=== PATIENT | female | born 1935 | race African-American/Black ===

== ENCOUNTER 2017-12-06 13:15 | Outpatient (CLI) | payer MEDICAID, MEDICARE ==
--- NOTE | 2017-12-06 17:32 | GI Initial Consult Note ---
Ortiz,Afshan Chase N.P. 12/06/17 1732: History of Present Illness General Date patient seen: Dec 06, 2017 Time patient seen: 17:17 Referring physician: RENETTA BARAHONA Reason for Consultation: GT CHANGE Present Illness HPI Pleasant 82 year old female patient referred by Dr. Barahona for GT evaluation and replacement. Patient is wheelchair bound, BIB by caregiver. Patient was roomed and awaited daughter for arrive. She presents today s/p PEG, still dependant on usage of the PEG after discussion with RN back at her home facility. Denies any unintentional weight loss or changes in dietary habits. NAD. Patient is a fall risk. Home Meds Reported Medications Ondansetron* (ZOFRAN*) 4 Mg Tablet, 4 MG GT Q6H PRN for Nausea & Vomiting, TAB 12/11/17 Acetaminophen* (TYLENOL EXTRA STRENGTH*) 500 Mg Tablet, 500 MG GT Q6H PRN for Mild Pain/Temp > 100.5, TAB 0 Refills 12/11/17 Mv-Mn/Fa/Coq10/Lycopene/Lutein (THERAGRAN-M PREMIER 50+ CAPLET) 1 Each Tablet, 1 EACH GT DAILY, TAB 12/11/17 Pravastatin Sod* (PRAVASTATIN SOD*) 20 Mg Tablet, 40 MG GT BEDTIME, TAB 12/11/17 Omeprazole (OMEPRAZOLE) 20 Mg Capsule.dr, 20 MG GT DAILY, CAP 12/11/17 Magnesium Hydroxide* (MILK OF MAGNESIA*) 400 Mg/5 Ml Oral.susp, 30 ML GT PRN, ML 12/11/17 Metoprolol Tartrate* (METOPROLOL TARTRATE*) 25 Mg Tablet, 25 MG GT EVERY 12 HOURS, TAB 12/11/17 Hypromellose (ISOPTO TEARS) 15 Ml Drops, 15 ML OP Q8HR, ML 12/11/17 Hydrochlorothiazide* (HYDROCHLOROTHIAZIDE*) 12.5 Mg Capsule, 12.5 MG GT DAILY, CAP 12/11/17 Aspirin Ec* (ASPIRIN EC*) 81 Mg Tablet.dr, 81 MG GT DAILY, TAB 12/11/17 Ascorbic Acid* (ASCORBIC ACID*) 500 Mg Tablet, 500 MG GT DAILY, TAB 12/11/17 Donepezil Hcl* (ARICEPT*) 5 Mg Tablet, 5 MG GT DAILY, TAB 12/11/17 Med list reviewed/reconciled: Yes Allergies: Coded Allergies: No Known Allergies (Unverified , 03/16/16) Patient History Limited by: medical condition History Provided By: Family Member, Medical Record PMH Narrative PMHx 1. Hypertension. 2. Gastroesophageal reflux disease. 3. Proteus urinary tract infection. 4. Dysphagia status post percutaneous endoscopic gastrostomy placement. 5. Acute renal failure secondary to dehydration, resolving. 6. Dehydration. 7. Anemia. 8. Hyponatremia. 9. Hematuria secondary to hemorrhagic cystitis status post cystoscopy. 10. Deep venous thrombosis of both femoral veins status post IVC filter. Social History: Denies: smoking, alcohol use, drug use, other Review of Systems All Other Systems: limited Physical Exam T 99.3 BP 130/88 P 79 95 RA Sp02 EP Interpretation: reviewed, normal General Appearance: well appearing, no apparent distress, alert Head: normocephalic EENT: PERRL/EOMI, normal ENT inspection Neck: supple Respiratory: normal breath sounds, no respiratory distress Cardiovascular: normal rate Gastrointestinal: normal inspection, non tender, soft, normal bowel sounds, non -distended Rectal: deferred Genitourinary: no CVA tenderness Neurologic: alert, responsive Skin: normal inspection, normal color, no rash, warm/dry, palpation normal, well hydrated Lymphatic: normal inspection, no adenopathy GI: Plan Problems: (1) PEG (percutaneous endoscopic gastrostomy) adjustment/replacement/removal Plan GT changed by . RTC prn no shower for 24 hours GT site care daily/prn okay to use Seen with Dr. Prieto. Thank you for this patient referral. KATHIE PRIETO 12/14/17 0830: History of Present Illness Present Illness Home Meds Reported Medications Ondansetron* (ZOFRAN*) 4 Mg Tablet, 4 MG GT Q6H PRN for Nausea & Vomiting, TAB 12/11/17 Acetaminophen* (TYLENOL EXTRA STRENGTH*) 500 Mg Tablet, 500 MG GT Q6H PRN for Mild Pain/Temp > 100.5, TAB 0 Refills 12/11/17 Mv-Mn/Fa/Coq10/Lycopene/Lutein (THERAGRAN-M PREMIER 50+ CAPLET) 1 Each Tablet, 1 EACH GT DAILY, TAB 12/11/17 Pravastatin Sod* (PRAVASTATIN SOD*) 20 Mg Tablet, 40 MG GT BEDTIME, TAB 12/11/17 Omeprazole (OMEPRAZOLE) 20 Mg Capsule.dr, 20 MG GT DAILY, CAP 12/11/17 Magnesium Hydroxide* (MILK OF MAGNESIA*) 400 Mg/5 Ml Oral.susp, 30 ML GT PRN, ML 12/11/17 Metoprolol Tartrate* (METOPROLOL TARTRATE*) 25 Mg Tablet, 25 MG GT EVERY 12 HOURS, TAB 12/11/17 Hypromellose (ISOPTO TEARS) 15 Ml Drops, 15 ML OP Q8HR, ML 12/11/17 Hydrochlorothiazide* (HYDROCHLOROTHIAZIDE*) 12.5 Mg Capsule, 12.5 MG GT DAILY, CAP 12/11/17 Aspirin Ec* (ASPIRIN EC*) 81 Mg Tablet.dr, 81 MG GT DAILY, TAB 12/11/17 Ascorbic Acid* (ASCORBIC ACID*) 500 Mg Tablet, 500 MG GT DAILY, TAB 12/11/17 Donepezil Hcl* (ARICEPT*) 5 Mg Tablet, 5 MG GT DAILY, TAB 12/11/17 Allergies: Coded Allergies: No Known Allergies (Unverified , 03/16/16) GI: Plan Plan The patient was seen and examined at bedside and all new and available data was reviewed in the patients chart. I agree with the above findings, impression and plan. (Patient seen earlier today. Signature stamp does not reflect patient encounter time.). - MD Diana Garber Anh Chase N.Mitch Dec 06, 2017 17:32 KATHIE PRIETO Dec 14, 2017 08:30
[2017-12-06] MEDS ORDERED: UNOBMED (17:33)
[2017-12-11] MEDS ORDERED: TYLENOL EXTRA500 MG GT (12:26)
[2017-12-11] MEDS ORDERED: ZOFRAN4 M3 GT (12:26)
[2017-12-11] MEDS ORDERED: ASCORBIC ACID500 MG GT (12:26)
[2017-12-11] MEDS ORDERED: PRAVASTATIN SOD20 M1 GT (12:26)
[2017-12-11] MEDS ORDERED: METOPROLOL TART25 MG GT (12:26)
[2017-12-11] MEDS ORDERED: ISOPTO TEARS15 ML OP (12:26)
[2017-12-11] MEDS ORDERED: ASPIRIN EC81 MG GT (12:26)
[2017-12-11] MEDS ORDERED: THERAGRAN-M PR1 EAC1 GT (12:26)
[2017-12-11] MEDS ORDERED: HYDROCHLOROTH12.5 M2 GT (12:26)
[2017-12-11] MEDS ORDERED: ARICEPT5 MG GT (12:26)
[2017-12-11] MEDS ORDERED: MILK OF MA400 MG/51 GT (12:26)
[2017-12-11] MEDS ORDERED: OMEPRAZOLE20 M2 GT (12:26)
== END 2017-12-06 13:48 | disposition home or self-care (01) ==
LOC: PAN 13:15
DX: Z43.1 Encounter for attention to gastrostomy (principal); I10 Essential (primary) hypertension; K21.9 Gastro-esophageal reflux disease without esophagitis; Z86.718 Personal history of other venous thrombosis and embolism
CPT/HCPCS: 99202

== ENCOUNTER 2018-08-09 08:34 | Inpatient (IN) | payer MEDICARE, MEDICAID ==
[~2018-08-09] VITALS: Ht 167.6 cm; Wt 68.2 kg
[~2018-08-09 08:34] MED LIST: ARICEPT5 MG GT; ASCORBIC ACID500 MG GT; ASPIRIN EC81 MG GT; HYDROCHLOROTH12.5 M2 GT; ISOPTO TEARS15 ML OP; METOPROLOL TART25 MG GT; MILK OF MA400 MG/51 GT; OMEPRAZOLE20 M2 GT; PRAVASTATIN SOD20 M1 GT; THERAGRAN-M PR1 EAC1 GT; TYLENOL EXTRA500 MG GT; UNOBMED; ZOFRAN4 M3 GT
--- NOTE | 2018-08-09 10:10 | Diagnostic Imaging Report ---
Indication: Status post gastrostomy replacement Technique: Supine view of the abdomen after injection of water-soluble contrast into gastrostomy Comparison: none Findings: Contrast opacifies the stomach. No contrast extravasation is demonstrated. The bowel gas pattern is unremarkable. Incidentally noted is an inferior vena cava filter. There is mild distention of the rectum with feces Impression: Satisfactory position of gastrostomy tube Possible mild rectal fecal impaction
[2018-08-09 10:26] LABS: BASOPHILS % (AUTO) 1.6 % (0.0-2.0); EOSINOPHILS % (AUTO) 1.2 % (0.0-3.0); HEMATOCRIT 40.9 % (37.0-47.0); HEMOGLOBIN 13.6 G/DL (12.0-16.0); LYMPHOCYTES % (AUTO) 19.9 % (20.0-45.0); MEAN CORPUSCULAR VOLUME 82 FL (80-99); MONOCYTES % (AUTO) 13.9 % (1.0-10.0); NEUTROPHILS % (AUTO) 63.4 % (45.0-75.0); PLATELET COUNT 344 K/UL (150-450); RED BLOOD COUNT 5.02 M/UL (4.20-5.40); WHITE BLOOD COUNT 10.1 K/UL (4.8-10.8)
[2018-08-09 10:34] LABS: ANION GAP 7 mmol/L (5-15); BLOOD UREA NITROGEN 30 mg/dL (7-18); CALCIUM 9.9 MG/DL (8.5-10.1); CARBON DIOXIDE 28 MMOL/L (21-32); CHLORIDE 107 MMOL/L (98-107); CREATININE 1.1 MG/DL (0.55-1.30); POTASSIUM 4.2 MMOL/L (3.5-5.1); SODIUM 142 MMOL/L (136-145)
[2018-08-09 10:36] LABS: INR 1.1 (0.9-1.1)
[2018-08-09 10:47] VITALS: BP 126/80
--- NOTE | 2018-08-09 11:59 | Emergency Room Report ---
History of Present Illness General Chief Complaint: Malfunctioning Gastric Tube Source: Patient Present Illness HPI This patient presents from a senior living facility because the G-tube is leaking. Apparently it was replaced yesterday and continues to leak. There are no other complaints. Allergies: Coded Allergies: No Known Allergies (Unverified , 03/16/16) Patient History Past Medical History: see triage record, HTN, CVA/TIA, dementia Social History: Denies: smoking, alcohol use, drug use Now: No Reviewed Nursing Documentation: PMH: Agreed; PSxH: Agreed Nursing Documentation-PMH Past Medical History: No History, Except For Hx Hypertension: Yes Hx Cancer: No Hx Gastrointestinal Problems: Yes - GERD Hx Neurological Problems: Yes - dementia Hx Cerebrovascular Accident: Yes Review of Systems All Other Systems: negative except mentioned in HPI Physical Exam Vital Signs Date Time Temp Pulse Resp B/P (MAP) Pulse Ox O2 Delivery O2 Flow Rate FiO2 08/09/18 08:35 99.9 110 20 126/80 94 Room Air Sp02 EP Interpretation: reviewed, normal General Appearance: no apparent distress, alert, GCS 15, non-toxic Head: normocephalic, atraumatic ENT: hearing grossly normal, normal pharynx, no angioedema Neck: full range of motion, supple/symm/no masses Respiratory: chest non-tender, lungs clear, normal breath sounds, no respiratory distress, no retraction, no accessory muscle use, speaking full sentences Cardiovascular #1: regular rate, rhythm, no edema Gastrointestinal: normal bowel sounds, non tender, soft, non-distended, no guarding, no rebound, other - G-tube leaking around insertion site when flushed Rectal: deferred Musculoskeletal: back normal, other - At baseline Neurologic: alert, responsive, other - hemiplegia, at baseline Psychiatric: mood/affect normal, no suicidal/homicidal ideation Skin: warm/dry, well hydrated, other - See RN skin exam Medical Decision Making Diagnostic Impression: Primary Impression: Malfunction of gastrostomy tube ER Course The patient presents with a leaking G-tube. I did replace the G-tube with a larger size. However, the G-tube continued to leak. This patient needs to be assessed by gastroenterology for further evaluation for G-tube site leaking. Laboratory Tests Test 08/09/18 10:14 White Blood Count 10.1 K/UL (4.8-10.8) Red Blood Count 5.02 M/UL (4.20-5.40) Hemoglobin 13.6 G/DL (12.0-16.0) Hematocrit 40.9 % (37.0-47.0) Mean Corpuscular Volume 82 FL (80-99) Mean Corpuscular Hemoglobin 27.0 PG (27.0-31.0) Mean Corpuscular Hemoglobin Concent 33.1 G/DL (32.0-36.0) Red Cell Distribution Width 13.0 % (11.6-14.8) Platelet Count 344 K/UL (150-450) Mean Platelet Volume 6.0 FL (6.5-10.1) L Neutrophils (%) (Auto) 63.4 % (45.0-75.0) Lymphocytes (%) (Auto) 19.9 % (20.0-45.0) L Monocytes (%) (Auto) 13.9 % (1.0-10.0) H Eosinophils (%) (Auto) 1.2 % (0.0-3.0) Basophils (%) (Auto) 1.6 % (0.0-2.0) Prothrombin Time 11.1 SEC (9.30-11.50) Prothrombin Time INR 1.1 (0.9-1.1) PTT 26 SEC (23-33) Sodium Level 142 MMOL/L (136-145) Potassium Level 4.2 MMOL/L (3.5-5.1) Chloride Level 107 MMOL/L (98-107) Carbon Dioxide Level 28 MMOL/L (21-32) Anion Gap 7 mmol/L (5-15) Blood Urea Nitrogen 30 mg/dL (7-18) H Creatinine 1.1 MG/DL (0.55-1.30) Estimate Glomerular Filtration Rate mL/min (>60) Glucose Level 130 MG/DL (74-106) H Calcium Level 9.9 MG/DL (8.5-10.1) Other X-Ray Diagnostic Results Other X-Ray Diagnostic Results : X-Ray ordered: KUB Impression: Other - Impression: Satisfactory position of gastrostomy tube Electronically Signed by: Rod Last Vital Signs Date Time Temp Pulse Resp B/P (MAP) Pulse Ox O2 Delivery O2 Flow Rate FiO2 08/09/18 10:47 98.6 110 20 126/80 96 Room Air Disposition: ADMITTED INPATIENT Condition: Stable Referrals: Jonatan Arteaga MD (PCP) Julita Sarmiento DO Aug 09, 2018 11:59
[2018-08-09 12:30] VITALS: BP 128/79
[2018-08-09 13:30] VITALS: BP 153/94
[2018-08-09] MEDS: D5NS 1,000 ML IV SCH (14:15)
[2018-08-09 16:00] VITALS: BP 149/92
--- NOTE | 2018-08-09 18:15 | History and Physical Report ---
DATE OF ADMISSION: 08/09/2018 REASON FOR ADMISSION: Malfunctioning gastrointestinal tube. HISTORY OF PRESENT ILLNESS: The patient is an 83-year-old female brought into the emergency room for further evaluation and care of a malfunctioning G-tube. Emergency room physician attempted to correct but was unable as such she is being admitted for further evaluation and correction. She is in no overt distress. PAST MEDICAL HISTORY: 1. DVT. 2. Pulmonary embolism. 3. Dementia. 4. Bed bound. 5. CVA. ALLERGIES: No known drug allergies. SOCIAL HISTORY: The patient is a assisted resident. No tobacco, alcohol, or illicit drug use. FAMILY HISTORY: Noncontributory. REVIEW OF SYSTEMS: Cannot obtain as patient is nonverbal. LABORATORY AND DIAGNOSTIC DATA: Labs dated August 09, 2018, white cell count 10.1, hemoglobin 10.3. Sodium 142, potassium 4.2, creatinine 1.1. PHYSICAL EXAMINATION: VITAL SIGNS: Blood pressure 126/80, respiratory 20, pulse 110, temperature 98.6, pulse oximetry 96% on room air. GENERAL: The patient awake, in no overt distress. HEENT: Extraocular muscles intact. No lymphadenopathy. Oropharyngeal mucosa clear and dry. CARDIOVASCULAR: S1 and S2. No rubs or gallops. PULMONARY: Clear to auscultation bilaterally. No rales, rhonchi or wheezes. ABDOMEN: Nondistended and nontender. G-tube noted and bandaged. EXTREMITIES: No edema noted. ASSESSMENT AND PLAN: 1. Nonfunctioning G-tube. At this time, gastroenterology has been consulted. Once Gastroenterology has corrected the malfunctioning G-tube, we will discharge the patient. 2. Hypertension, stable. Continue assisted medications and adjust as deemed appropriate. 3. DVT prophylaxis with Lovenox subcutaneous. 4. GERD. The patient on omeprazole. 5. Dementia. The patient on donepezil. Once gastrointestinal tube is corrected, the patient will be discharged back to her assisted. Cheng Crandall MD DR: Sylvia JOB#: [id number] CC:
--- NOTE | 2018-08-09 18:40 | Internal Med Progress Note ---
Subjective Date of Service: Aug 09, 2018 Physician Name Guanako Mensah Attending Physician Cheng Crandall MD Current Medications Medications (Trade) Dose Ordered Sig/Beatris Route PRN Reason Start Time Stop Time Status Last Admin Dose Admin Ascorbic Acid (Vitamin C) 500 mg DAILY GT 08/10/18 09:00 09/09/18 08:59 Aspirin (ASA) 81 mg DAILY GT 08/10/18 09:00 09/09/18 08:59 Dextrose (Dextrose 50%) 25 ml Q30M PRN IV Hypoglycemia 08/09/18 11:15 09/08/18 11:14 Dextrose (Dextrose 50%) 50 ml Q30M PRN IV Hypoglycemia 08/09/18 11:15 09/08/18 11:14 Dextrose/Sodium Chloride 1,000 ml @ 75 mls/hr [id number] IV 08/09/18 11:24 09/08/18 11:23 08/09/18 14:15 Donepezil HCl (Aricept) 5 mg QHS GT 08/09/18 21:00 09/08/18 20:59 Enoxaparin Sodium (Lovenox) 40 mg DAILY SUBQ 08/10/18 09:00 09/09/18 08:59 Hydrochlorothiazide (Hydrodiuril) 12.5 mg DAILY GT 08/10/18 09:00 09/09/18 08:59 Metoprolol Tartrate (Lopressor) 25 mg Q12HR GT 08/09/18 21:00 09/08/18 20:59 Ondansetron HCl (Zofran) 4 mg Q6H PRN IVP Nausea & Vomiting 08/09/18 11:15 09/08/18 11:14 Pravastatin Sodium (Pravachol) 40 mg DAILY GT 08/10/18 09:00 09/09/18 08:59 Allergies: Coded Allergies: No Known Allergies (Unverified , 03/16/16) ROS Limited/Unobtainable: Yes Subjective 83 YO F admitted with leaking G-tube. Cover for Int Med-Dr Arteaga. Objective Last Vital Signs Date Time Temp Pulse Resp B/P (MAP) Pulse Ox O2 Delivery O2 Flow Rate FiO2 08/09/18 16:00 98.1 98 20 149/92 (111) 08/09/18 13:49 Room Air 08/09/18 12:58 96 General Appearance: WD/WN, no apparent distress, lethargic EENT: PERRL/EOMI, normal ENT inspection Neck: non-tender, normal alignment, supple, normal inspection Cardiovascular: normal peripheral pulses, normal rate, regular rhythm, no gallop/murmur, no JVD Respiratory/Chest: chest wall non-tender, lungs clear, normal breath sounds, no respiratory distress, no accessory muscle use Abdomen: soft, no organomegaly, no mass, decreased bowel sounds Extremities: normal range of motion 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 Laboratory Tests Test 08/09/18 10:14 White Blood Count 10.1 K/UL (4.8-10.8) Red Blood Count 5.02 M/UL (4.20-5.40) Hemoglobin 13.6 G/DL (12.0-16.0) Hematocrit 40.9 % (37.0-47.0) Mean Corpuscular Volume 82 FL (80-99) Mean Corpuscular Hemoglobin 27.0 PG (27.0-31.0) Mean Corpuscular Hemoglobin Concent 33.1 G/DL (32.0-36.0) Red Cell Distribution Width 13.0 % (11.6-14.8) Platelet Count 344 K/UL (150-450) Mean Platelet Volume 6.0 FL (6.5-10.1) L Neutrophils (%) (Auto) 63.4 % (45.0-75.0) Lymphocytes (%) (Auto) 19.9 % (20.0-45.0) L Monocytes (%) (Auto) 13.9 % (1.0-10.0) H Eosinophils (%) (Auto) 1.2 % (0.0-3.0) Basophils (%) (Auto) 1.6 % (0.0-2.0) Prothrombin Time 11.1 SEC (9.30-11.50) Prothromb Time International Ratio 1.1 (0.9-1.1) Activated Partial Thromboplast Time 26 SEC (23-33) Sodium Level 142 MMOL/L (136-145) Potassium Level 4.2 MMOL/L (3.5-5.1) Chloride Level 107 MMOL/L (98-107) Carbon Dioxide Level 28 MMOL/L (21-32) Anion Gap 7 mmol/L (5-15) Blood Urea Nitrogen 30 mg/dL (7-18) H Creatinine 1.1 MG/DL (0.55-1.30) Estimat Glomerular Filtration Rate mL/min (>60) Glucose Level 130 MG/DL (74-106) H Calcium Level 9.9 MG/DL (8.5-10.1) Assessment/Plan Problem List: (1) Alzheimer's dementia (2) Cerebral vascular disease (3) 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 Assessment & Plan: Continue lovenox (4) Malfunction of gastrostomy tube Assessment & Plan: Await GI consult. (5) HTN (hypertension) Assessment & Plan: Continue HCTZ and lopressor (6) GERD (gastroesophageal reflux disease) (7) Dysphagia Status: not improved Guanako Mensah MD Aug 09, 2018 18:40
[2018-08-09 20:00] VITALS: BP 138/88
[2018-08-09] MEDS: Donepezil 5mg Tab GT SCH (21:01)
[2018-08-09] MEDS: Metoprolol 25mg tab GT SCH (21:01)
--- NOTE | 2018-08-09 21:39 | Consultation ---
History of Present Illness General Date patient seen: Aug 09, 2018 Chief Complaint: Malfunctioning Gastric Tube Present Illness HPI 3-year-old female was [facility] emergency room for further evaluation and care of a malfunctioning G-tube. the pt resides at [facility] and i treat her there. the pt has been more confused and agitated. the pt is currently on donazapil. The pt is a poor historian and has memory impairment. Allergies: Coded Allergies: No Known Allergies (Unverified , 03/16/16) Medication History Scheduled Ascorbic Acid* (Ascorbic Acid*), 500 MG GT DAILY, (Reported) Aspirin Ec* (Aspirin Ec*), 81 MG GT DAILY, (Reported) Donepezil Hcl* (Aricept*), 5 MG GT DAILY, (Reported) Hydrochlorothiazide* (Hydrochlorothiazide*), 12.5 MG GT DAILY, (Reported) Hypromellose (Isopto Tears), 15 ML OP Q8HR, (Reported) Magnesium Hydroxide* (Milk Of Magnesia*), 30 ML GT PRN, (Reported) Metoprolol Tartrate* (Metoprolol Tartrate*), 25 MG GT EVERY 12 HOURS, (Reported) Mv-Mn/Fa/Coq10/Lycopene/Lutein (Theragran-M Premier 50+ Caplet), 1 EACH GT DAILY , (Reported) Omeprazole (Omeprazole), 20 MG GT DAILY, (Reported) Pravastatin Sod* (Pravastatin Sod*), 40 MG GT BEDTIME, (Reported) Scheduled PRN Acetaminophen* (Tylenol Extra Strength*), 500 MG GT Q6H PRN for Mild Pain/Temp > 100.5, (Reported) Ondansetron* (Zofran*), 4 MG GT Q6H PRN for Nausea & Vomiting, (Reported) Patient History Limited by: medical condition History Provided By: Patient, Medical Record Healthcare decision maker unable to get the info Resuscitation status Do Not Intubate Advanced Directive on File Past Medical/Surgical History Past Medical/Surgical History: (1) Dehydration (2) UTI (urinary tract infection) (3) ARF (acute renal failure) (4) Failure to thrive (5) Anemia (6) Encounter for PEG (percutaneous endoscopic gastrostomy) (7) Hypoalbuminemia (8) Hypernatremia (9) Proteus mirabilis infection (10) Rectal bleeding (11) Hyponatremia (12) Tachycardia (13) Hematuria (14) Cystitis (15) Deep venous thrombosis of both femoral veins (16) PEG (percutaneous endoscopic gastrostomy) adjustment/replacement/removal (17) HTN (hypertension) (18) Cerebral vascular disease (19) Alzheimer's dementia (20) 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 (21) Dysphagia (22) GERD (gastroesophageal reflux disease) (23) Malfunction of gastrostomy tube Review of Systems Psychiatric: Reports: prior hx, anxiety Physical Exam General Appearance: no apparent distress, alert, confused - oriented to self and place Last 24 Hour Vital Signs Date Time Temp Pulse Resp B/P (MAP) Pulse Ox O2 Delivery O2 Flow Rate FiO2 08/09/18 21:01 97 138/88 08/09/18 21:00 Room Air 08/09/18 20:00 97.3 97 20 138/88 (105) 97 08/09/18 16:00 98.1 98 20 149/92 (111) 08/09/18 13:49 Room Air 08/09/18 13:30 97.8 101 20 153/94 (113) 08/09/18 12:58 98.6 103 18 128/79 96 Room Air 08/09/18 12:30 98.6 103 18 128/79 96 Room Air 08/09/18 10:47 98.6 110 20 126/80 96 Room Air 08/09/18 08:35 99.9 110 20 126/80 94 Room Air Laboratory Tests Test 08/09/18 10:14 White Blood Count 10.1 K/UL (4.8-10.8) Red Blood Count 5.02 M/UL (4.20-5.40) Hemoglobin 13.6 G/DL (12.0-16.0) Hematocrit 40.9 % (37.0-47.0) Mean Corpuscular Volume 82 FL (80-99) Mean Corpuscular Hemoglobin 27.0 PG (27.0-31.0) Mean Corpuscular Hemoglobin Concent 33.1 G/DL (32.0-36.0) Red Cell Distribution Width 13.0 % (11.6-14.8) Platelet Count 344 K/UL (150-450) Mean Platelet Volume 6.0 FL (6.5-10.1) L Neutrophils (%) (Auto) 63.4 % (45.0-75.0) Lymphocytes (%) (Auto) 19.9 % (20.0-45.0) L Monocytes (%) (Auto) 13.9 % (1.0-10.0) H Eosinophils (%) (Auto) 1.2 % (0.0-3.0) Basophils (%) (Auto) 1.6 % (0.0-2.0) Prothrombin Time 11.1 SEC (9.30-11.50) Prothromb Time International Ratio 1.1 (0.9-1.1) Activated Partial Thromboplast Time 26 SEC (23-33) Sodium Level 142 MMOL/L (136-145) Potassium Level 4.2 MMOL/L (3.5-5.1) Chloride Level 107 MMOL/L (98-107) Carbon Dioxide Level 28 MMOL/L (21-32) Anion Gap 7 mmol/L (5-15) Blood Urea Nitrogen 30 mg/dL (7-18) H Creatinine 1.1 MG/DL (0.55-1.30) Estimat Glomerular Filtration Rate mL/min (>60) Glucose Level 130 MG/DL (74-106) H Calcium Level 9.9 MG/DL (8.5-10.1) Height (Feet): 5 Height (Inches): 6.00 Weight (Pounds): 150 Medications Current Medications Medications (Trade) Dose Ordered Sig/Beatris Route PRN Reason Start Time Stop Time Status Last Admin Dose Admin Ascorbic Acid (Vitamin C) 500 mg DAILY GT 08/10/18 09:00 09/09/18 08:59 Aspirin (ASA) 81 mg DAILY GT 08/10/18 09:00 09/09/18 08:59 Dextrose (Dextrose 50%) 25 ml Q30M PRN IV Hypoglycemia 08/09/18 11:15 09/08/18 11:14 Dextrose (Dextrose 50%) 50 ml Q30M PRN IV Hypoglycemia 08/09/18 11:15 09/08/18 11:14 Dextrose/Sodium Chloride 1,000 ml @ 75 mls/hr [id number] IV 08/09/18 11:24 09/08/18 11:23 08/09/18 14:15 Donepezil HCl (Aricept) 5 mg QHS GT 08/09/18 21:00 09/08/18 20:59 08/09/18 21:01 Enoxaparin Sodium (Lovenox) 40 mg DAILY SUBQ 08/10/18 09:00 09/09/18 08:59 Hydrochlorothiazide (Hydrodiuril) 12.5 mg DAILY GT 08/10/18 09:00 09/09/18 08:59 Metoprolol Tartrate (Lopressor) 25 mg Q12HR GT 08/09/18 21:00 09/08/18 20:59 08/09/18 21:01 Ondansetron HCl (Zofran) 4 mg Q6H PRN IVP Nausea & Vomiting 08/09/18 11:15 09/08/18 11:14 Pravastatin Sodium (Pravachol) 40 mg DAILY GT 08/10/18 09:00 09/09/18 08:59 Assessment/Plan Problem List: (1) Alzheimer's dementia ICD Codes: G30.9 - Alzheimer's disease, unspecified; F02.80 - Dementia in other diseases classified elsewhere without behavioral disturbance SNOMED: 12438545 (2) Cerebral vascular disease ICD Codes: I67.9 - Cerebrovascular disease, unspecified SNOMED: 59620276 Status: unchanged Assessment/Plan anxiety d/o Ativan prn Aruna Cornejo MD Aug 09, 2018 21:39
[2018-08-09] MEDS ORDERED: LORazepam 1mg tab ORAL PRN (21:45)
[2018-08-10 00:31] VITALS: BP 159/95
[2018-08-10] MEDS: D5NS 1,000 ML IV SCH ×2 (00:32→05:58)
[2018-08-10 04:40] VITALS: BP 145/78
[2018-08-10 06:22] LABS: BASOPHILS % (AUTO) 1.3 % (0.0-2.0); EOSINOPHILS % (AUTO) 2.1 % (0.0-3.0); HEMATOCRIT 35.3 % (37.0-47.0); HEMOGLOBIN 11.6 G/DL (12.0-16.0); LYMPHOCYTES % (AUTO) 20.8 % (20.0-45.0); MEAN CORPUSCULAR VOLUME 82 FL (80-99); MONOCYTES % (AUTO) 13.7 % (1.0-10.0); NEUTROPHILS % (AUTO) 62.1 % (45.0-75.0); PLATELET COUNT 301 K/UL (150-450); WHITE BLOOD COUNT 7.8 K/UL (4.8-10.8)
[2018-08-10 06:33] LABS: ANION GAP 10 mmol/L (5-15); BLOOD UREA NITROGEN 26 mg/dL (7-18); CALCIUM 9.1 MG/DL (8.5-10.1); CARBON DIOXIDE 24 MMOL/L (21-32); CHLORIDE 111 MMOL/L (98-107); CREATININE 1.1 MG/DL (0.55-1.30); SODIUM 145 MMOL/L (136-145)
[2018-08-10 08:00] VITALS: BP 127/73
[2018-08-10] MEDS: Aspirin Baby 81mg GT SCH (09:00)
[2018-08-10] MEDS: Ascorbic Acid 500mg tab GT SCH (09:00)
[2018-08-10] MEDS: Metoprolol 25mg tab GT SCH ×2 (09:00→20:35)
[2018-08-10] MEDS: Enoxaparin 40mg Inj SUBQ SCH (09:23)
[2018-08-10 12:00] VITALS: BP 136/86
--- NOTE | 2018-08-10 13:48 | General Progress Note ---
Assessment/Plan Assessment/Plan GI CONSULT GT removed and then replaced. Will feed today. If fails, then may need G to J conversion Sunday Thank you Humble Middleton MD Subjective Allergies: Coded Allergies: No Known Allergies (Unverified , 03/16/16) Objective Last 24 Hour Vital Signs Date Time Temp Pulse Resp B/P (MAP) Pulse Ox O2 Delivery O2 Flow Rate FiO2 08/10/18 12:00 98.4 87 16 136/86 (103) 97 08/10/18 09:00 Room Air 08/10/18 09:00 79 127/73 08/10/18 08:00 98.1 79 16 127/73 (91) 98 08/10/18 04:40 98.2 87 20 145/78 (100) 95 08/10/18 00:31 98.2 89 20 159/95 (116) 98 08/09/18 21:01 97 138/88 08/09/18 21:00 Room Air 08/09/18 20:00 97.3 97 20 138/88 (105) 97 08/09/18 16:00 98.1 98 20 149/92 (111) 08/09/18 13:49 Room Air Intake and Output 08/09/18 08/10/18 18:59 06:59 Intake Total 825 ml Balance 825 ml Intake IV Total 825 ml # Voids 3 2 Laboratory Tests 08/10/18 05:50: White Blood Count 7.8, Red Blood Count 4.30, Hemoglobin 11.6L, Hematocrit 35.3L , Mean Corpuscular Volume 82, Mean Corpuscular Hemoglobin 27.0, Mean Corpuscular Hemoglobin Concent 32.8, Red Cell Distribution Width 13.0, Platelet Count 301, Mean Platelet Volume 5.8L, Neutrophils (%) (Auto) 62.1, Lymphocytes ( %) (Auto) 20.8, Monocytes (%) (Auto) 13.7H, Eosinophils (%) (Auto) 2.1, Basophils (%) (Auto) 1.3, Sodium Level 145, Potassium Level 4.0, Chloride Level 111H, Carbon Dioxide Level 24, Anion Gap 10, Blood Urea Nitrogen 26H, Creatinine 1.1, Estimat Glomerular Filtration Rate , Glucose Level 122H, Calcium Level 9.1 Height (Feet): 5 Height (Inches): 6.00 Weight (Pounds): 150 Radah Middleton MD Aug 10, 2018 13:48
[2018-08-10] MEDS ORDERED: Metoclopramide 10mg/2ml Inj IVP PRN (14:00)
[2018-08-10 16:00] VITALS: BP 157/83
--- NOTE | 2018-08-10 16:52 | Internal Med Progress Note ---
Subjective Date of Service: Aug 10, 2018 Physician Name Mensah,Guanako Attending Physician Jonatan Arteaga MD Current Medications Medications (Trade) Dose Ordered Sig/Beatris Route PRN Reason Start Time Stop Time Status Last Admin Dose Admin Ascorbic Acid (Vitamin C) 500 mg DAILY GT 08/10/18 09:00 09/09/18 08:59 Aspirin (ASA) 81 mg DAILY GT 08/10/18 09:00 09/09/18 08:59 Dextrose (Dextrose 50%) 25 ml Q30M PRN IV Hypoglycemia 08/09/18 11:15 09/08/18 11:14 Dextrose (Dextrose 50%) 50 ml Q30M PRN IV Hypoglycemia 08/09/18 11:15 09/08/18 11:14 Dextrose/Sodium Chloride 1,000 ml @ 75 mls/hr [id number] IV 08/09/18 11:24 09/08/18 11:23 08/10/18 05:58 Donepezil HCl (Aricept) 5 mg QHS GT 08/09/18 21:00 09/08/18 20:59 08/09/18 21:01 Enoxaparin Sodium (Lovenox) 40 mg DAILY SUBQ 08/10/18 09:00 09/09/18 08:59 08/10/18 09:23 Hydrochlorothiazide (Hydrodiuril) 12.5 mg DAILY GT 08/10/18 09:00 09/09/18 08:59 Lorazepam (Ativan) 1 mg Q6H PRN ORAL For Anxiety 08/09/18 21:45 08/16/18 21:44 Metoclopramide HCl (Reglan) 10 mg Q6H PRN IVP Nausea & Vomiting 08/10/18 14:00 09/09/18 13:59 Metoprolol Tartrate (Lopressor) 25 mg Q12HR GT 08/09/18 21:00 09/08/18 20:59 08/09/18 21:01 Ondansetron HCl (Zofran) 4 mg Q6H PRN IVP Nausea & Vomiting 08/09/18 11:15 09/08/18 11:14 Pravastatin Sodium (Pravachol) 40 mg DAILY GT 08/10/18 09:00 09/09/18 08:59 Allergies: Coded Allergies: No Known Allergies (Unverified , 03/16/16) ROS Limited/Unobtainable: Yes Subjective 83 YO F admitted with leaking G-tube. Cover for Int Sriram-Dr Arteaga. Objective Last Vital Signs Date Time Temp Pulse Resp B/P (MAP) Pulse Ox O2 Delivery O2 Flow Rate FiO2 08/10/18 16:00 98.5 97 17 157/83 (107) 99 08/10/18 09:00 Room Air General Appearance: WD/WN, no apparent distress EENT: PERRL/EOMI, normal ENT inspection Neck: non-tender, normal alignment, supple, normal inspection Cardiovascular: normal peripheral pulses, normal rate, regular rhythm, no gallop/murmur, no JVD Respiratory/Chest: chest wall non-tender, lungs clear, normal breath sounds, no respiratory distress, no accessory muscle use Abdomen: normal bowel sounds, non tender, soft, no organomegaly, no mass Extremities: normal range of motion Neurologic: claim representative II-XII grossly normal, no motor/sensory deficits Skin: normal pigmentation, warm/dry Laboratory Tests Test 08/10/18 05:50 White Blood Count 7.8 K/UL (4.8-10.8) Red Blood Count 4.30 M/UL (4.20-5.40) Hemoglobin 11.6 G/DL (12.0-16.0) L Hematocrit 35.3 % (37.0-47.0) L Mean Corpuscular Volume 82 FL (80-99) Mean Corpuscular Hemoglobin 27.0 PG (27.0-31.0) Mean Corpuscular Hemoglobin Concent 32.8 G/DL (32.0-36.0) Red Cell Distribution Width 13.0 % (11.6-14.8) Platelet Count 301 K/UL (150-450) Mean Platelet Volume 5.8 FL (6.5-10.1) L Neutrophils (%) (Auto) 62.1 % (45.0-75.0) Lymphocytes (%) (Auto) 20.8 % (20.0-45.0) Monocytes (%) (Auto) 13.7 % (1.0-10.0) H Eosinophils (%) (Auto) 2.1 % (0.0-3.0) Basophils (%) (Auto) 1.3 % (0.0-2.0) Sodium Level 145 MMOL/L (136-145) Potassium Level 4.0 MMOL/L (3.5-5.1) Chloride Level 111 MMOL/L (98-107) H Carbon Dioxide Level 24 MMOL/L (21-32) Anion Gap 10 mmol/L (5-15) Blood Urea Nitrogen 26 mg/dL (7-18) H Creatinine 1.1 MG/DL (0.55-1.30) Estimat Glomerular Filtration Rate mL/min (>60) Glucose Level 122 MG/DL (74-106) H Calcium Level 9.1 MG/DL (8.5-10.1) Intake and Output 08/09/18 08/10/18 19:00 07:00 Intake Total 75 ml 750 ml Balance 75 ml 750 ml Intake IV Total 75 ml 750 ml # Voids 3 2 Assessment/Plan Problem List: (1) Alzheimer's dementia (2) Cerebral vascular disease (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 (5) HTN (hypertension) Assessment & Plan: Continue HCTZ and lopressor (6) GERD (gastroesophageal reflux disease) (7) Dysphagia Status: not improved Guanako Mensah MD Aug 10, 2018 16:52
--- NOTE | 2018-08-10 18:15 | Consultation ---
DATE OF CONSULTATION: 08/10/2018 GASTROENTEROLOGY CONSULTATION CONSULTING PHYSICIAN: Radha Middleton M.D. CHIEF COMPLAINT: I was asked to see this patient by Dr. Cheng Crandall for evaluation of gastrostomy tube leakage. HISTORY OF PRESENT ILLNESS: The patient is an 83-year-old -Lao woman with advanced dementia and history of stroke, who has undergone a gastrostomy tube placement, was brought in from a [place] [facility] care facility due to gastrostomy tube leakage. The patient herself has advanced dementia and is unable to provide much history. Most of the information is only available from the chart. I discussed with the patient's nurses. Her feeding and medications have been held for now. The patient has had no vomiting. PAST MEDICAL HISTORY: History of deep vein thrombosis, pulmonary embolism, dementia, bedbound state, and dysphagia. There is gastrostomy tube placement. ALLERGIES: None. FAMILY HISTORY: Unavailable and noncontributory. SOCIAL HISTORY: The patient is from a [place] health care facility. The patient has had no history of smoking or drinking. REVIEW OF SYSTEMS: Unobtainable. PHYSICAL EXAMINATION: GENERAL: An elderly -Lao woman, seen in her room. HEENT: Normocephalic and atraumatic. Sclerae anicteric. Oropharynx clear. NECK: Supple. CHEST: Clear to auscultation. CARDIOVASCULAR: Revealed regular rate. ABDOMEN: Soft with 22-Persian gastrostomy catheter in apparent good position, but leaking thin gastric juices. The gastrostomy tube was deflated, completely removed, cleaned and the gastrostomy site also cleaned and the gastrostomy catheter was then placed back into gastric lumen and the catheter inflated and position secured. EXTREMITIES: Revealed no edema. LABORATORY AND DIAGNOSTIC DATA: Laboratory data was noted. ASSESSMENT: This patient presents with gastrostomy site leakage of unclear etiology. The gastrostomy catheter itself appears to be in relatively new shape and also in good position. The issue may be gastroparesis or other pathology, which impair clearance of gastric contents. I will retry feeding overnight and if the patient fails this feeding trial, then a gastrostomy to jejunostomy conversion may be indicated. RECOMMENDATIONS: Per above discussion and per orders written in the chart. Thank you for asking me to participate in care of this patient. Radha Middleton M.D. DR: SANDRO JOB#: [id number] CC:
[2018-08-10 20:00] VITALS: BP 176/99
[2018-08-10] MEDS: Donepezil 5mg Tab GT SCH (20:35)
--- NOTE | 2018-08-10 22:39 | General Progress Note ---
Assessment/Plan Problem List: (1) Alzheimer's dementia ICD Codes: G30.9 - Alzheimer's disease, unspecified; F02.80 - Dementia in other diseases classified elsewhere without behavioral disturbance SNOMED: 52948857 (2) Cerebral vascular disease ICD Codes: I67.9 - Cerebrovascular disease, unspecified SNOMED: 23485261 Status: not improved, unchanged Assessment/Plan anxiety d/o Ativan prn donazapi; Subjective Date patient seen: Aug 10, 2018 Neurologic/Psychiatric: Reports: anxiety, depressed Allergies: Coded Allergies: No Known Allergies (Unverified , 03/16/16) Objective Last 24 Hour Vital Signs Date Time Temp Pulse Resp B/P (MAP) Pulse Ox O2 Delivery O2 Flow Rate FiO2 08/10/18 20:35 104 176/99 08/10/18 20:00 98.0 104 18 176/99 (124) 100 08/10/18 16:00 98.5 97 17 157/83 (107) 99 08/10/18 12:00 98.4 87 16 136/86 (103) 97 08/10/18 09:00 Room Air 08/10/18 09:00 79 127/73 08/10/18 08:00 98.1 79 16 127/73 (91) 98 08/10/18 04:40 98.2 87 20 145/78 (100) 95 08/10/18 00:31 98.2 89 20 159/95 (116) 98 Intake and Output 08/09/18 08/10/18 19:00 07:00 Intake Total 75 ml 750 ml Balance 75 ml 750 ml Intake IV Total 75 ml 750 ml # Voids 3 2 Laboratory Tests 08/10/18 05:50: White Blood Count 7.8, Red Blood Count 4.30, Hemoglobin 11.6L, Hematocrit 35.3L , Mean Corpuscular Volume 82, Mean Corpuscular Hemoglobin 27.0, Mean Corpuscular Hemoglobin Concent 32.8, Red Cell Distribution Width 13.0, Platelet Count 301, Mean Platelet Volume 5.8L, Neutrophils (%) (Auto) 62.1, Lymphocytes ( %) (Auto) 20.8, Monocytes (%) (Auto) 13.7H, Eosinophils (%) (Auto) 2.1, Basophils (%) (Auto) 1.3, Sodium Level 145, Potassium Level 4.0, Chloride Level 111H, Carbon Dioxide Level 24, Anion Gap 10, Blood Urea Nitrogen 26H, Creatinine 1.1, Estimat Glomerular Filtration Rate , Glucose Level 122H, Calcium Level 9.1 Height (Feet): 5 Height (Inches): 6.00 Weight (Pounds): 150 General Appearance: alert, confused, agitated Aruna Hussein MD Aug 10, 2018 22:39
[2018-08-11] VITALS: BP 165/85
[2018-08-11] MEDS: D5NS 1,000 ML IV SCH ×2 (00:07→12:06)
[2018-08-11] MEDS: Metoclopramide 10mg/10ml Liq GT SCH ×5 (00:07→23:35)
[2018-08-11 04:00] VITALS: BP 149/71
[2018-08-11 06:18] LABS: BASOPHILS % (AUTO) 1.2 % (0.0-2.0); HEMATOCRIT 37.2 % (37.0-47.0); MEAN CORPUSCULAR VOLUME 83 FL (80-99); MONOCYTES % (AUTO) 15.7 % (1.0-10.0); NEUTROPHILS % (AUTO) 63.1 % (45.0-75.0); PLATELET COUNT 291 K/UL (150-450); RED BLOOD COUNT 4.47 M/UL (4.20-5.40); RED CELL DISTRIBUTION WIDTH 12.7 % (11.6-14.8); WHITE BLOOD COUNT 7.4 K/UL (4.8-10.8)
[2018-08-11 07:02] LABS: ANION GAP 9 mmol/L (5-15); BLOOD UREA NITROGEN 22 mg/dL (7-18); CALCIUM 9.1 MG/DL (8.5-10.1); CARBON DIOXIDE 25 MMOL/L (21-32); CHLORIDE 111 MMOL/L (98-107); POTASSIUM 3.4 MMOL/L (3.5-5.1); SODIUM 145 MMOL/L (136-145)
[2018-08-11 08:00] VITALS: BP 134/78
[2018-08-11] MEDS: Aspirin Baby 81mg GT SCH (08:52)
[2018-08-11] MEDS: Ascorbic Acid 500mg tab GT SCH (08:53)
[2018-08-11] MEDS: Metoprolol 25mg tab GT SCH ×2 (08:53→20:12)
[2018-08-11] MEDS: Enoxaparin 40mg Inj SUBQ SCH (08:55)
[2018-08-11 11:59] VITALS: BP 129/68
--- NOTE | 2018-08-11 13:03 | Internal Med Progress Note ---
Subjective Date of Service: Aug 11, 2018 Physician Name Mensah,Guanako Attending Physician Jonatan Arteaga MD Current Medications Medications (Trade) Dose Ordered Sig/Beatris Route PRN Reason Start Time Stop Time Status Last Admin Dose Admin Ascorbic Acid (Vitamin C) 500 mg DAILY GT 08/10/18 09:00 09/09/18 08:59 08/11/18 08:53 Aspirin (ASA) 81 mg DAILY GT 08/10/18 09:00 09/09/18 08:59 08/11/18 08:52 Dextrose (Dextrose 50%) 25 ml Q30M PRN IV Hypoglycemia 08/09/18 11:15 09/08/18 11:14 Dextrose (Dextrose 50%) 50 ml Q30M PRN IV Hypoglycemia 08/09/18 11:15 09/08/18 11:14 Dextrose/Sodium Chloride 1,000 ml @ 75 mls/hr [id number] IV 08/09/18 11:24 09/08/18 11:23 08/11/18 12:06 Donepezil HCl (Aricept) 5 mg QHS GT 08/09/18 21:00 09/08/18 20:59 08/10/18 20:35 Enoxaparin Sodium (Lovenox) 40 mg DAILY SUBQ 08/10/18 09:00 09/09/18 08:59 08/11/18 08:55 Hydrochlorothiazide (Hydrodiuril) 12.5 mg DAILY GT 08/10/18 09:00 09/09/18 08:59 08/11/18 08:53 Lorazepam (Ativan) 1 mg Q6H PRN ORAL For Anxiety 08/09/18 21:45 08/16/18 21:44 Metoclopramide HCl (Reglan) 10 mg Q6H GT 08/11/18 00:00 09/10/18 00:00 08/11/18 12:06 Metoclopramide HCl (Reglan) 10 mg Q6H PRN IVP Nausea & Vomiting 08/10/18 14:00 09/09/18 13:59 Metoprolol Tartrate (Lopressor) 25 mg Q12HR GT 08/09/18 21:00 09/08/18 20:59 08/11/18 08:53 Ondansetron HCl (Zofran) 4 mg Q6H PRN IVP Nausea & Vomiting 08/09/18 11:15 09/08/18 11:14 Pravastatin Sodium (Pravachol) 40 mg DAILY GT 08/10/18 09:00 09/09/18 08:59 08/11/18 08:53 Allergies: Coded Allergies: No Known Allergies (Unverified , 03/16/16) ROS Limited/Unobtainable: Yes Subjective 83 YO F admitted with leaking G-tube. Cover for Int Med-Dr Arteaga. Objective Last Vital Signs Date Time Temp Pulse Resp B/P (MAP) Pulse Ox O2 Delivery O2 Flow Rate FiO2 08/11/18 11:59 98.8 80 18 129/68 (88) 99 08/10/18 21:00 Room Air Laboratory Tests Test 08/11/18 05:25 White Blood Count 7.4 K/UL (4.8-10.8) Red Blood Count 4.47 M/UL (4.20-5.40) Hemoglobin 12.0 G/DL (12.0-16.0) Hematocrit 37.2 % (37.0-47.0) Mean Corpuscular Volume 83 FL (80-99) Mean Corpuscular Hemoglobin 26.9 PG (27.0-31.0) L Mean Corpuscular Hemoglobin Concent 32.3 G/DL (32.0-36.0) Red Cell Distribution Width 12.7 % (11.6-14.8) Platelet Count 291 K/UL (150-450) Mean Platelet Volume 6.1 FL (6.5-10.1) L Neutrophils (%) (Auto) 63.1 % (45.0-75.0) Lymphocytes (%) (Auto) 18.0 % (20.0-45.0) L Monocytes (%) (Auto) 15.7 % (1.0-10.0) H Eosinophils (%) (Auto) 2.0 % (0.0-3.0) Basophils (%) (Auto) 1.2 % (0.0-2.0) Sodium Level 145 MMOL/L (136-145) Potassium Level 3.4 MMOL/L (3.5-5.1) L Chloride Level 111 MMOL/L (98-107) H Carbon Dioxide Level 25 MMOL/L (21-32) Anion Gap 9 mmol/L (5-15) Blood Urea Nitrogen 22 mg/dL (7-18) H Creatinine 1.0 MG/DL (0.55-1.30) Estimat Glomerular Filtration Rate mL/min (>60) Glucose Level 142 MG/DL (74-106) H Calcium Level 9.1 MG/DL (8.5-10.1) Microbiology Date/Time Source Procedure Growth Status 08/09/18 10:40 Nasal Nares MRSA Culture - Final NO METHICILLIN RESISTANT STAPH AUREUS... Complete 08/09/18 10:40 Rectum VRE Culture - Final Enterococcus Faecalis - Vre Complete Intake and Output 08/10/18 08/11/18 19:00 07:00 Intake Total 1200 ml 1360 ml Balance 1200 ml 1360 ml Intake Free Water 150 ml IV Total 900 ml 600 ml Tube Feeding 300 ml 610 ml # Voids 3 4 # Bowel Movements 2 3 Objective General Appearance: WD/WN, no apparent distress EENT: PERRL/EOMI, normal ENT inspection Neck: non-tender, normal alignment, supple, normal inspection Cardiovascular: normal peripheral pulses, normal rate, regular rhythm, no gallop/murmur, no JVD Respiratory/Chest: chest wall non-tender, lungs clear, normal breath sounds, no respiratory distress, no accessory muscle use Abdomen: normal bowel sounds, non tender, soft, no organomegaly, no mass Extremities: normal range of motion Neurologic: yeast pusher II-XII grossly normal, no motor/sensory deficits Skin: normal pigmentation, warm/dry Assessment/Plan Problem List: (1) Alzheimer's dementia (2) Cerebral vascular disease (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 (5) HTN (hypertension) Assessment & Plan: Continue HCTZ and lopressor (6) GERD (gastroesophageal reflux disease) (7) Dysphagia Status: not improved Guan[place] Mensah MD Aug 11, 2018 13:03
[2018-08-11 15:55] VITALS: BP 130/74
--- NOTE | 2018-08-11 19:49 | General Progress Note ---
Assessment/Plan Assessment/Plan Assessment - Dysphagia - S/p PEG - G tube site TF leak Recommendations - Christina trial - continue TF - Elevate HOB - monitor residuals - await call back from family Subjective Allergies: Coded Allergies: No Known Allergies (Unverified , 03/16/16) Subjective Above noted discussed with RN Christina added last night to help with gastric emptying less GT leak, but still some feeds noted on dressing message left for family to call and discuss Objective Last 24 Hour Vital Signs Date Time Temp Pulse Resp B/P (MAP) Pulse Ox O2 Delivery O2 Flow Rate FiO2 08/11/18 15:55 99.1 80 18 130/74 (92) 99 08/11/18 11:59 98.8 80 18 129/68 (88) 99 08/11/18 08:53 91 134/78 08/11/18 08:00 99.6 91 18 134/78 (96) 99 08/11/18 04:00 97.0 66 20 149/71 (97) 95 08/11/18 00:00 99.7 84 20 165/85 (111) 98 08/10/18 21:00 Room Air 08/10/18 20:35 104 176/99 08/10/18 20:00 98.0 104 18 176/99 (124) 100 Intake and Output 08/10/18 08/11/18 19:00 07:00 Intake Total 1200 ml 1360 ml Balance 1200 ml 1360 ml Intake Free Water 150 ml IV Total 900 ml 600 ml Tube Feeding 300 ml 610 ml # Voids 3 4 # Bowel Movements 2 3 Laboratory Tests 08/11/18 05:25: White Blood Count 7.4, Red Blood Count 4.47, Hemoglobin 12.0, Hematocrit 37.2, Mean Corpuscular Volume 83, Mean Corpuscular Hemoglobin 26.9L, Mean Corpuscular Hemoglobin Concent 32.3, Red Cell Distribution Width 12.7, Platelet Count 291, Mean Platelet Volume 6.1L, Neutrophils (%) (Auto) 63.1, Lymphocytes (%) (Auto) 18.0L, Monocytes (%) (Auto) 15.7H, Eosinophils (%) (Auto) 2.0, Basophils (%) ( Auto) 1.2, Sodium Level 145, Potassium Level 3.4L, Chloride Level 111H, Carbon Dioxide Level 25, Anion Gap 9, Blood Urea Nitrogen 22H, Creatinine 1.0, Estimat Glomerular Filtration Rate , Glucose Level 142H, Calcium Level 9.1 Height (Feet): 5 Height (Inches): 6.00 Weight (Pounds): 150 Objective WDWN NCAT supple CTA RRR abd soft, GT in good position no edema Radha Middleton MD Aug 11, 2018 19:49
[2018-08-11 20:00] VITALS: BP 145/81
[2018-08-11] MEDS: Donepezil 5mg Tab GT SCH (20:12)
--- NOTE | 2018-08-11 23:56 | General Progress Note ---
Assessment/Plan Problem List: (1) Alzheimer's dementia ICD Codes: G30.9 - Alzheimer's disease, unspecified; F02.80 - Dementia in other diseases classified elsewhere without behavioral disturbance SNOMED: 21027245 (2) Cerebral vascular disease ICD Codes: I67.9 - Cerebrovascular disease, unspecified SNOMED: 86630756 Status: stable Assessment/Plan anxiety d/o Ativan prn donazapi; Subjective Neurologic/Psychiatric: Reports: anxiety, depressed, emotional problems Allergies: Coded Allergies: No Known Allergies (Unverified , 03/16/16) Objective Last 24 Hour Vital Signs Date Time Temp Pulse Resp B/P (MAP) Pulse Ox O2 Delivery O2 Flow Rate FiO2 08/11/18 21:00 Room Air 08/11/18 20:12 87 145/81 08/11/18 20:00 98.9 87 20 145/81 (102) 99 08/11/18 15:55 99.1 80 18 130/74 (92) 99 08/11/18 11:59 98.8 80 18 129/68 (88) 99 08/11/18 08:53 91 134/78 08/11/18 08:00 99.6 91 18 134/78 (96) 99 08/11/18 04:00 97.0 66 20 149/71 (97) 95 08/11/18 00:00 99.7 84 20 165/85 (111) 98 Intake and Output 08/10/18 08/11/18 19:00 07:00 Intake Total 1200 ml 1360 ml Balance 1200 ml 1360 ml Intake Free Water 150 ml IV Total 900 ml 600 ml Tube Feeding 300 ml 610 ml # Voids 3 4 # Bowel Movements 2 3 Laboratory Tests 08/11/18 05:25: White Blood Count 7.4, Red Blood Count 4.47, Hemoglobin 12.0, Hematocrit 37.2, Mean Corpuscular Volume 83, Mean Corpuscular Hemoglobin 26.9L, Mean Corpuscular Hemoglobin Concent 32.3, Red Cell Distribution Width 12.7, Platelet Count 291, Mean Platelet Volume 6.1L, Neutrophils (%) (Auto) 63.1, Lymphocytes (%) (Auto) 18.0L, Monocytes (%) (Auto) 15.7H, Eosinophils (%) (Auto) 2.0, Basophils (%) ( Auto) 1.2, Sodium Level 145, Potassium Level 3.4L, Chloride Level 111H, Carbon Dioxide Level 25, Anion Gap 9, Blood Urea Nitrogen 22H, Creatinine 1.0, Estimat Glomerular Filtration Rate , Glucose Level 142H, Calcium Level 9.1 Height (Feet): 5 Height (Inches): 6.00 Weight (Pounds): 150 General Appearance: alert, agitated Aruna Hussein MD Aug 11, 2018 23:56
[2018-08-12] VITALS: BP 152/84
[2018-08-12] MEDS: D5NS 1,000 ML IV SCH ×2 (03:11→17:18)
[2018-08-12 04:00] VITALS: BP 131/75
[2018-08-12] MEDS: Metoclopramide 10mg/10ml Liq GT SCH ×4 (05:26→23:39)
[2018-08-12 08:06] LABS: EOSINOPHILS % (AUTO) 2.2 % (0.0-3.0); HEMATOCRIT 33.1 % (37.0-47.0); HEMOGLOBIN 10.8 G/DL (12.0-16.0); LYMPHOCYTES % (AUTO) 23.5 % (20.0-45.0); MEAN CORPUSCULAR VOLUME 82 FL (80-99); MONOCYTES % (AUTO) 17.6 % (1.0-10.0); NEUTROPHILS % (AUTO) 55.7 % (45.0-75.0); PLATELET COUNT 315 K/UL (150-450); RED BLOOD COUNT 4.04 M/UL (4.20-5.40); RED CELL DISTRIBUTION WIDTH 12.5 % (11.6-14.8); WHITE BLOOD COUNT 5.7 K/UL (4.8-10.8)
[2018-08-12 08:08] VITALS: BP 131/76
[2018-08-12 08:25] LABS: ANION GAP 11 mmol/L (5-15); BLOOD UREA NITROGEN 17 mg/dL (7-18); CALCIUM 8.9 MG/DL (8.5-10.1); CARBON DIOXIDE 26 MMOL/L (21-32); CHLORIDE 108 MMOL/L (98-107); POTASSIUM 3.4 MMOL/L (3.5-5.1); SODIUM 144 MMOL/L (136-145)
[2018-08-12] MEDS: Aspirin Baby 81mg GT SCH (08:31)
[2018-08-12] MEDS: Ascorbic Acid 500mg tab GT SCH (08:32)
[2018-08-12] MEDS: Metoprolol 25mg tab GT SCH ×2 (08:32→20:26)
[2018-08-12] MEDS: Enoxaparin 40mg Inj SUBQ SCH (08:35)
--- NOTE | 2018-08-12 10:33 | Consultation ---
History of Present Illness General Date patient seen: Aug 12, 2018 Chief Complaint: Malfunctioning Gastric Tube Present Illness HPI 83 year old female with hx of HTN, CVA/TIA, dementia, dvt, bed bound, care home resident presented to ER because the G-tube is leaking. Apparently it was replaced yesterday and continues to leak. Pt is admitted for further management. The is discoloration around the Gtube site and some leakage as well. Allergies: Coded Allergies: No Known Allergies (Unverified , 03/16/16) Medication History Scheduled Ascorbic Acid* (Ascorbic Acid*), 500 MG GT DAILY, (Reported) Aspirin Ec* (Aspirin Ec*), 81 MG GT DAILY, (Reported) Donepezil Hcl* (Aricept*), 5 MG GT DAILY, (Reported) Hydrochlorothiazide* (Hydrochlorothiazide*), 12.5 MG GT DAILY, (Reported) Hypromellose (Isopto Tears), 15 ML OP Q8HR, (Reported) Magnesium Hydroxide* (Milk Of Magnesia*), 30 ML GT PRN, (Reported) Metoprolol Tartrate* (Metoprolol Tartrate*), 25 MG GT EVERY 12 HOURS, (Reported) Mv-Mn/Fa/Coq10/Lycopene/Lutein (Theragran-M Premier 50+ Caplet), 1 EACH GT DAILY , (Reported) Omeprazole (Omeprazole), 20 MG GT DAILY, (Reported) Pravastatin Sod* (Pravastatin Sod*), 40 MG GT BEDTIME, (Reported) Scheduled PRN Acetaminophen* (Tylenol Extra Strength*), 500 MG GT Q6H PRN for Mild Pain/Temp > 100.5, (Reported) Ondansetron* (Zofran*), 4 MG GT Q6H PRN for Nausea & Vomiting, (Reported) Patient History Healthcare decision maker unable to get the info Resuscitation status Do Not Intubate Advanced Directive on File Past Medical/Surgical History Past Medical/Surgical History: (1) HTN (hypertension) (2) Cerebral vascular disease (3) Alzheimer's dementia (4) Feeding by G-tube (5) 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 Review of Systems All Other Systems: negative except mentioned in HPI Physical Exam Lines, tubes and drains: peripheral HEENT: normocephalic, anicteric Neck: non-tender, normal alignment Respiratory/Chest: chest wall non-tender, lungs clear Breasts: no masses Cardiovascular/Chest: normal peripheral pulses Abdomen: normal bowel sounds, non tender Genitourinary/Rectal: normal genital exam Extremities: normal range of motion Skin Exam: normal pigmentation Last 24 Hour Vital Signs Date Time Temp Pulse Resp B/P (MAP) Pulse Ox O2 Delivery O2 Flow Rate FiO2 08/12/18 09:00 Room Air 08/12/18 08:32 78 131/76 08/12/18 08:08 97.4 78 18 131/76 (94) 97 08/12/18 04:00 99.3 82 18 131/75 (93) 98 08/12/18 00:00 99.2 84 22 152/84 (106) 99 08/11/18 21:00 Room Air 08/11/18 20:12 87 145/81 08/11/18 20:00 98.9 87 20 145/81 (102) 99 08/11/18 15:55 99.1 80 18 130/74 (92) 99 08/11/18 11:59 98.8 80 18 129/68 (88) 99 Intake and Output 08/11/18 08/12/18 19:00 07:00 Intake Total 645 ml 1525 ml Balance 645 ml 1525 ml Intake Free Water 90 ml 150 ml IV Total 75 ml 825 ml Tube Feeding 480 ml 550 ml # Voids 2 3 # Bowel Movements 2 1 Laboratory Tests Test 08/12/18 07:30 White Blood Count 5.7 K/UL (4.8-10.8) Red Blood Count 4.04 M/UL (4.20-5.40) L Hemoglobin 10.8 G/DL (12.0-16.0) L Hematocrit 33.1 % (37.0-47.0) L Mean Corpuscular Volume 82 FL (80-99) Mean Corpuscular Hemoglobin 26.8 PG (27.0-31.0) L Mean Corpuscular Hemoglobin Concent 32.7 G/DL (32.0-36.0) Red Cell Distribution Width 12.5 % (11.6-14.8) Platelet Count 315 K/UL (150-450) Mean Platelet Volume 6.0 FL (6.5-10.1) L Neutrophils (%) (Auto) 55.7 % (45.0-75.0) Lymphocytes (%) (Auto) 23.5 % (20.0-45.0) Monocytes (%) (Auto) 17.6 % (1.0-10.0) H Eosinophils (%) (Auto) 2.2 % (0.0-3.0) Basophils (%) (Auto) 1.0 % (0.0-2.0) Sodium Level 144 MMOL/L (136-145) Potassium Level 3.4 MMOL/L (3.5-5.1) L Chloride Level 108 MMOL/L (98-107) H Carbon Dioxide Level 26 MMOL/L (21-32) Anion Gap 11 mmol/L (5-15) Blood Urea Nitrogen 17 mg/dL (7-18) Creatinine 1.0 MG/DL (0.55-1.30) Estimat Glomerular Filtration Rate mL/min (>60) Glucose Level 107 MG/DL (74-106) H Calcium Level 8.9 MG/DL (8.5-10.1) Height (Feet): 5 Height (Inches): 6.00 Weight (Pounds): 150 Medications Current Medications Medications (Trade) Dose Ordered Sig/Beatris Route PRN Reason Start Time Stop Time Status Last Admin Dose Admin Ascorbic Acid (Vitamin C) 500 mg DAILY GT 08/10/18 09:00 09/09/18 08:59 08/12/18 08:32 Aspirin (ASA) 81 mg DAILY GT 08/10/18 09:00 09/09/18 08:59 08/12/18 08:31 Dextrose (Dextrose 50%) 25 ml Q30M PRN IV Hypoglycemia 08/09/18 11:15 09/08/18 11:14 Dextrose (Dextrose 50%) 50 ml Q30M PRN IV Hypoglycemia 08/09/18 11:15 09/08/18 11:14 Dextrose/Sodium Chloride 1,000 ml @ 75 mls/hr [id number] IV 08/09/18 11:24 09/08/18 11:23 08/12/18 03:11 Donepezil HCl (Aricept) 5 mg QHS GT 08/09/18 21:00 09/08/18 20:59 08/11/18 20:12 Enoxaparin Sodium (Lovenox) 40 mg DAILY SUBQ 08/10/18 09:00 09/09/18 08:59 08/12/18 08:35 Hydrochlorothiazide (Hydrodiuril) 12.5 mg DAILY GT 08/10/18 09:00 09/09/18 08:59 08/12/18 08:32 Lorazepam (Ativan) 1 mg Q6H PRN ORAL For Anxiety 08/09/18 21:45 08/16/18 21:44 Metoclopramide HCl (Reglan) 10 mg Q6H GT 08/11/18 00:00 09/10/18 00:00 08/12/18 05:26 Metoclopramide HCl (Reglan) 10 mg Q6H PRN IVP Nausea & Vomiting 08/10/18 14:00 09/09/18 13:59 Metoprolol Tartrate (Lopressor) 25 mg Q12HR GT 08/09/18 21:00 09/08/18 20:59 08/12/18 08:32 Ondansetron HCl (Zofran) 4 mg Q6H PRN IVP Nausea & Vomiting 08/09/18 11:15 09/08/18 11:14 Potassium Chloride (K-Dur) 40 meq ONCE GT 08/12/18 09:45 08/12/18 10:45 Pravastatin Sodium (Pravachol) 40 mg DAILY GT 08/10/18 09:00 09/09/18 08:59 08/12/18 08:32 Assessment/Plan Problem List: (1) Malfunction of gastrostomy tube ICD Codes: K94.23 - Gastrostomy malfunction SNOMED: 037268181 (2) ARF (acute renal failure) ICD Codes: N17.9 - Acute kidney failure, unspecified SNOMED: 72854598 (3) Anemia ICD Codes: D64.9 - Anemia, unspecified SNOMED: 577329819 (4) Cerebral vascular disease ICD Codes: I67.9 - Cerebrovascular disease, unspecified SNOMED: 90682967 (5) HTN (hypertension) ICD Codes: I10 - Essential (primary) hypertension SNOMED: 25662235 (6) Feeding by G-tube ICD Codes: Z93.1 - Gastrostomy status SNOMED: 466979655, 513893129 (7) Alzheimer's dementia ICD Codes: G30.9 - Alzheimer's disease, unspecified; F02.80 - Dementia in other diseases classified elsewhere without behavioral disturbance SNOMED: 31102830 Assessment/Plan NPO GI evaluation pt might need a new Gtube check electrolytes monitor BP wound care consult symptomatic treatment social insurance administrator to find DOPA Janie Suero MD Aug 12, 2018 10:33
[2018-08-12 12:00] VITALS: BP 139/77
--- NOTE | 2018-08-12 12:50 | General Progress Note ---
Assessment/Plan Problem List: (1) Alzheimer's dementia ICD Codes: G30.9 - Alzheimer's disease, unspecified; F02.80 - Dementia in other diseases classified elsewhere without behavioral disturbance SNOMED: 37569112 (2) Cerebral vascular disease ICD Codes: I67.9 - Cerebrovascular disease, unspecified SNOMED: 46286568 Status: stable Assessment/Plan anxiety d/o Ativan prn donazapi; Subjective Neurologic/Psychiatric: Reports: anxiety, depressed, emotional problems Allergies: Coded Allergies: No Known Allergies (Unverified , 03/16/16) Objective Last 24 Hour Vital Signs Date Time Temp Pulse Resp B/P (MAP) Pulse Ox O2 Delivery O2 Flow Rate FiO2 08/12/18 12:00 97.9 81 19 139/77 (97) 98 08/12/18 09:00 Room Air 08/12/18 08:32 78 131/76 08/12/18 08:08 97.4 78 18 131/76 (94) 97 08/12/18 04:00 99.3 82 18 131/75 (93) 98 08/12/18 00:00 99.2 84 22 152/84 (106) 99 08/11/18 21:00 Room Air 08/11/18 20:12 87 145/81 08/11/18 20:00 98.9 87 20 145/81 (102) 99 08/11/18 15:55 99.1 80 18 130/74 (92) 99 Intake and Output 08/11/18 08/12/18 19:00 07:00 Intake Total 645 ml 1525 ml Balance 645 ml 1525 ml Intake Free Water 90 ml 150 ml IV Total 75 ml 825 ml Tube Feeding 480 ml 550 ml # Voids 2 3 # Bowel Movements 2 1 Laboratory Tests 08/12/18 07:30: White Blood Count 5.7, Red Blood Count 4.04L, Hemoglobin 10.8L, Hematocrit 33.1L , Mean Corpuscular Volume 82, Mean Corpuscular Hemoglobin 26.8L, Mean Corpuscular Hemoglobin Concent 32.7, Red Cell Distribution Width 12.5, Platelet Count 315, Mean Platelet Volume 6.0L, Neutrophils (%) (Auto) 55.7, Lymphocytes ( %) (Auto) 23.5, Monocytes (%) (Auto) 17.6H, Eosinophils (%) (Auto) 2.2, Basophils (%) (Auto) 1.0, Sodium Level 144, Potassium Level 3.4L, Chloride Level 108H, Carbon Dioxide Level 26, Anion Gap 11, Blood Urea Nitrogen 17, Creatinine 1.0, Estimat Glomerular Filtration Rate , Glucose Level 107H, Calcium Level 8.9 Height (Feet): 5 Height (Inches): 6.00 Weight (Pounds): 150 General Appearance: no apparent distress, alert, confused Aruna Hussein MD Aug 12, 2018 12:50
[2018-08-12] MEDS ORDERED: D5NS 1000ml IV ONE (14:40)
[2018-08-12 16:03] VITALS: BP 129/71
--- NOTE | 2018-08-12 17:56 | Internal Med Progress Note ---
Subjective Date of Service: Aug 12, 2018 Physician Name Guanako Mensah Attending Physician Jonatan Arteaga MD Current Medications Medications (Trade) Dose Ordered Sig/Beatris Route PRN Reason Start Time Stop Time Status Last Admin Dose Admin Ascorbic Acid (Vitamin C) 500 mg DAILY GT 08/10/18 09:00 09/09/18 08:59 08/12/18 08:32 Aspirin (ASA) 81 mg DAILY GT 08/10/18 09:00 09/09/18 08:59 08/12/18 08:31 Dextrose (Dextrose 50%) 25 ml Q30M PRN IV Hypoglycemia 08/09/18 11:15 09/08/18 11:14 Dextrose (Dextrose 50%) 50 ml Q30M PRN IV Hypoglycemia 08/09/18 11:15 09/08/18 11:14 Dextrose/Sodium Chloride 1,000 ml @ 75 mls/hr [id number] IV 08/09/18 11:24 09/08/18 11:23 08/12/18 17:18 Donepezil HCl (Aricept) 5 mg QHS GT 08/09/18 21:00 09/08/18 20:59 08/11/18 20:12 Enoxaparin Sodium (Lovenox) 40 mg DAILY SUBQ 08/10/18 09:00 09/09/18 08:59 08/12/18 08:35 Hydrochlorothiazide (Hydrodiuril) 12.5 mg DAILY GT 08/10/18 09:00 09/09/18 08:59 08/12/18 08:32 Lorazepam (Ativan) 1 mg Q6H PRN ORAL For Anxiety 08/09/18 21:45 08/16/18 21:44 Metoclopramide HCl (Reglan) 10 mg Q6H GT 08/11/18 00:00 09/10/18 00:00 08/12/18 17:18 Metoclopramide HCl (Reglan) 10 mg Q6H PRN IVP Nausea & Vomiting 08/10/18 14:00 09/09/18 13:59 Metoprolol Tartrate (Lopressor) 25 mg Q12HR GT 08/09/18 21:00 09/08/18 20:59 08/12/18 08:32 Ondansetron HCl (Zofran) 4 mg Q6H PRN IVP Nausea & Vomiting 08/09/18 11:15 09/08/18 11:14 Pravastatin Sodium (Pravachol) 40 mg DAILY GT 08/10/18 09:00 09/09/18 08:59 08/12/18 08:32 Allergies: Coded Allergies: No Known Allergies (Unverified , 03/16/16) ROS Limited/Unobtainable: Yes Subjective 83 YO F admitted with leaking G-tube. Cover for Int Med-Dr Arteaga. Objective Last Vital Signs Date Time Temp Pulse Resp B/P (MAP) Pulse Ox O2 Delivery O2 Flow Rate FiO2 08/12/18 16:03 98.6 70 18 129/71 (90) 97 08/12/18 09:00 Room Air Laboratory Tests Test 08/12/18 07:30 White Blood Count 5.7 K/UL (4.8-10.8) Red Blood Count 4.04 M/UL (4.20-5.40) L Hemoglobin 10.8 G/DL (12.0-16.0) L Hematocrit 33.1 % (37.0-47.0) L Mean Corpuscular Volume 82 FL (80-99) Mean Corpuscular Hemoglobin 26.8 PG (27.0-31.0) L Mean Corpuscular Hemoglobin Concent 32.7 G/DL (32.0-36.0) Red Cell Distribution Width 12.5 % (11.6-14.8) Platelet Count 315 K/UL (150-450) Mean Platelet Volume 6.0 FL (6.5-10.1) L Neutrophils (%) (Auto) 55.7 % (45.0-75.0) Lymphocytes (%) (Auto) 23.5 % (20.0-45.0) Monocytes (%) (Auto) 17.6 % (1.0-10.0) H Eosinophils (%) (Auto) 2.2 % (0.0-3.0) Basophils (%) (Auto) 1.0 % (0.0-2.0) Sodium Level 144 MMOL/L (136-145) Potassium Level 3.4 MMOL/L (3.5-5.1) L Chloride Level 108 MMOL/L (98-107) H Carbon Dioxide Level 26 MMOL/L (21-32) Anion Gap 11 mmol/L (5-15) Blood Urea Nitrogen 17 mg/dL (7-18) Creatinine 1.0 MG/DL (0.55-1.30) Estimat Glomerular Filtration Rate mL/min (>60) Glucose Level 107 MG/DL (74-106) H Calcium Level 8.9 MG/DL (8.5-10.1) Intake and Output 08/11/18 08/12/18 19:00 07:00 Intake Total 645 ml 1575 ml Balance 645 ml 1575 ml Intake Free Water 90 ml 150 ml IV Total 75 ml 825 ml Tube Feeding 480 ml 600 ml # Voids 2 3 # Bowel Movements 2 1 Objective General Appearance: WD/WN, no apparent distress EENT: PERRL/EOMI, normal ENT inspection Neck: non-tender, normal alignment, supple, normal inspection Cardiovascular: normal peripheral pulses, normal rate, regular rhythm, no gallop/murmur, no JVD Respiratory/Chest: chest wall non-tender, lungs clear, normal breath sounds, no respiratory distress, no accessory muscle use Abdomen: normal bowel sounds, non tender, soft, no organomegaly, no mass Extremities: normal range of motion 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 (5) HTN (hypertension) Assessment & Plan: Continue HCTZ and lopressor (6) GERD (gastroesophageal reflux disease) (7) Dysphagia Status: not improved Guanako Mensah MD Aug 12, 2018 17:56
[2018-08-12 20:00] VITALS: BP 136/81
[2018-08-12] MEDS: Donepezil 5mg Tab GT SCH (20:26)
--- NOTE | 2018-08-12 23:35 | General Progress Note ---
Assessment/Plan Assessment/Plan Assessment - Dysphagia - S/p PEG - G tube site TF leak Recommendations - Reglan trial - continue TF - Elevate HOB - monitor residuals - await call back from family Subjective Allergies: Coded Allergies: No Known Allergies (Unverified , 03/16/16) Subjective Above noted discussed with RN On Reglan to help with gastric emptying less GT leak, but still some feeds noted on dressing message left for family to call and discuss Objective Last 24 Hour Vital Signs Date Time Temp Pulse Resp B/P (MAP) Pulse Ox O2 Delivery O2 Flow Rate FiO2 08/12/18 21:00 Room Air 08/12/18 20:26 87 136/81 08/12/18 20:00 99.0 87 16 136/81 (99) 98 08/12/18 16:03 98.6 70 18 129/71 (90) 97 08/12/18 12:00 97.9 81 19 139/77 (97) 98 08/12/18 09:00 Room Air 08/12/18 08:32 78 131/76 08/12/18 08:08 97.4 78 18 131/76 (94) 97 08/12/18 04:00 99.3 82 18 131/75 (93) 98 08/12/18 00:00 99.2 84 22 152/84 (106) 99 Intake and Output 08/11/18 08/12/18 19:00 07:00 Intake Total 645 ml 1575 ml Balance 645 ml 1575 ml Intake Free Water 90 ml 150 ml IV Total 75 ml 825 ml Tube Feeding 480 ml 600 ml # Voids 2 3 # Bowel Movements 2 1 Laboratory Tests 08/12/18 07:30: White Blood Count 5.7, Red Blood Count 4.04L, Hemoglobin 10.8L, Hematocrit 33.1L , Mean Corpuscular Volume 82, Mean Corpuscular Hemoglobin 26.8L, Mean Corpuscular Hemoglobin Concent 32.7, Red Cell Distribution Width 12.5, Platelet Count 315, Mean Platelet Volume 6.0L, Neutrophils (%) (Auto) 55.7, Lymphocytes ( %) (Auto) 23.5, Monocytes (%) (Auto) 17.6H, Eosinophils (%) (Auto) 2.2, Basophils (%) (Auto) 1.0, Sodium Level 144, Potassium Level 3.4L, Chloride Level 108H, Carbon Dioxide Level 26, Anion Gap 11, Blood Urea Nitrogen 17, Creatinine 1.0, Estimat Glomerular Filtration Rate , Glucose Level 107H, Calcium Level 8.9 Height (Feet): 5 Height (Inches): 6.00 Weight (Pounds): 150 Objective WDWN NCAT supple CTA RRR abd soft, GT in good position no edema Radha Middleton MD Aug 12, 2018 23:35
[2018-08-13] VITALS (7 sets, daily range): BP systolic 123–142; BP diastolic 72–86
[2018-08-13] MEDS: Metoclopramide 10mg/10ml Liq GT SCH ×4 (05:16→23:54)
[2018-08-13] MEDS: D5NS 1,000 ML IV SCH ×2 (05:16→22:00)
[2018-08-13 06:21] LABS: BASOPHILS % (AUTO) 0.6 % (0.0-2.0); EOSINOPHILS % (AUTO) 2.2 % (0.0-3.0); HEMATOCRIT 29.4 % (37.0-47.0); HEMOGLOBIN 10.3 G/DL (12.0-16.0); MEAN CORPUSCULAR VOLUME 79 FL (80-99); MONOCYTES % (AUTO) 7.6 % (1.0-10.0); NEUTROPHILS % (AUTO) 76.5 % (45.0-75.0); PLATELET COUNT 208 K/UL (150-450); RED BLOOD COUNT 3.73 M/UL (4.20-5.40); RED CELL DISTRIBUTION WIDTH 13.3 % (11.6-14.8); WHITE BLOOD COUNT 10.9 K/UL (4.8-10.8)
[2018-08-13 06:27] LABS: ALANINE AMINOTRANSFERASE 40 U/L (12-78); ALBUMIN 2.6 G/DL (3.4-5.0); ALBUMIN/GLOBULIN RATIO 0.5 (1.0-2.7); ALKALINE PHOSPHATASE 91 U/L (46-116); ANION GAP 9 mmol/L (5-15); ASPARTATE AMINO TRANSFERASE 32 U/L (15-37); BILIRUBIN,TOTAL 0.5 MG/DL (0.2-1.0); BLOOD UREA NITROGEN 15 mg/dL (7-18); CALCIUM 8.8 MG/DL (8.5-10.1); CARBON DIOXIDE 26 MMOL/L (21-32); CHLORIDE 106 MMOL/L (98-107); CREATININE 0.9 MG/DL (0.55-1.30); PHOSPHORUS 2.4 MG/DL (2.5-4.9); POTASSIUM 3.3 MMOL/L (3.5-5.1); SODIUM 141 MMOL/L (136-145)
[2018-08-13] MEDS: Aspirin Baby 81mg GT SCH (09:12)
[2018-08-13] MEDS: Metoprolol 25mg tab GT SCH ×2 (09:19→20:16)
[2018-08-13] MEDS: Ascorbic Acid 500mg tab GT SCH (09:24)
[2018-08-13] MEDS: Enoxaparin 40mg Inj SUBQ SCH ×2 (09:26→09:47)
--- NOTE | 2018-08-13 11:08 | Pulmonology Progress Note ---
Assessment/Plan Problems: (1) Malfunction of gastrostomy tube (2) ARF (acute renal failure) (3) Anemia (4) Cerebral vascular disease (5) HTN (hypertension) (6) Feeding by G-tube (7) Alzheimer's dementia Assessment/Plan still leaking GI evaluation appreciated, pt might need a new Jtube pt might need a new Gtube check electrolytes monitor BP wound care consult symptomatic treatment social sciences department chair to find DOPA Subjective ROS Limited/Unobtainable: No Constitutional: Reports: no symptoms HEENT: Repors: no symptoms Respiratory: Reports: no symptoms Allergies: Coded Allergies: No Known Allergies (Unverified , 03/16/16) Objective Last 24 Hour Vital Signs Date Time Temp Pulse Resp B/P (MAP) Pulse Ox O2 Delivery O2 Flow Rate FiO2 08/13/18 10:23 98.2 85 17 127/73 (91) 99 08/13/18 09:19 73 127/73 08/13/18 09:00 Room Air 08/13/18 08:30 97.7 73 21 127/73 (91) 98 08/13/18 04:00 98.2 85 17 138/86 (103) 99 08/13/18 00:00 98.1 72 16 123/75 (91) 98 08/12/18 21:00 Room Air 08/12/18 20:26 87 136/81 08/12/18 20:00 99.0 87 16 136/81 (99) 98 08/12/18 16:03 98.6 70 18 129/71 (90) 97 08/12/18 12:00 97.9 81 19 139/77 (97) 98 Intake and Output 08/12/18 08/13/18 18:59 06:59 Intake Total 1515 ml 1905 ml Balance 1515 ml 1905 ml Intake Free Water 90 ml 180 ml IV Total 825 ml 825 ml Tube Feeding 600 ml 900 ml # Bowel Movements 1 General Appearance: WD/WN HEENT: normocephalic, atraumatic Respiratory/Chest: chest wall non-tender, lungs clear, normal breath sounds Breasts: no masses Cardiovascular: normal rate Abdomen: soft, non tender, no scars Extremities: no cyanosis, no clubbing Skin: no rash Laboratory Tests 08/13/18 05:05: White Blood Count 10.9#H, Red Blood Count 3.73L, Hemoglobin 10.3L, Hematocrit 29.4L, Mean Corpuscular Volume 79L, Mean Corpuscular Hemoglobin 27.6, Mean Corpuscular Hemoglobin Concent 35.1, Red Cell Distribution Width 13.3, Platelet Count 208, Mean Platelet Volume 6.5, Neutrophils (%) (Auto) 76.5H, Lymphocytes ( %) (Auto) 13.0L, Monocytes (%) (Auto) 7.6, Eosinophils (%) (Auto) 2.2, Basophils (%) (Auto) 0.6, Sodium Level 141, Potassium Level 3.3L, Chloride Level 106, Carbon Dioxide Level 26, Anion Gap 9, Blood Urea Nitrogen 15, Creatinine 0.9, Estimat Glomerular Filtration Rate , Glucose Level 123H, Calcium Level 8.8, Phosphorus Level 2.4L, Magnesium Level 1.6L, Total Bilirubin 0.5, Aspartate Amino Transf (AST/SGOT) 32, Alanine Aminotransferase (ALT/SGPT) 40, Alkaline Phosphatase 91, Total Protein 7.8, Albumin 2.6L, Globulin 5.2, Albumin/Globulin Ratio 0.5L Current Medications Medications (Trade) Dose Ordered Sig/Beatris Route PRN Reason Start Time Stop Time Status Last Admin Dose Admin Ascorbic Acid (Vitamin C) 500 mg DAILY GT 08/10/18 09:00 09/09/18 08:59 08/13/18 09:24 Aspirin (ASA) 81 mg DAILY GT 08/10/18 09:00 09/09/18 08:59 08/13/18 09:12 Dextrose (Dextrose 50%) 25 ml Q30M PRN IV Hypoglycemia 08/09/18 11:15 09/08/18 11:14 Dextrose (Dextrose 50%) 50 ml Q30M PRN IV Hypoglycemia 08/09/18 11:15 09/08/18 11:14 Dextrose/Sodium Chloride 1,000 ml @ 75 mls/hr [id number] IV 08/09/18 11:24 09/08/18 11:23 08/13/18 05:16 Donepezil HCl (Aricept) 5 mg QHS GT 08/09/18 21:00 09/08/18 20:59 08/12/18 20:26 Enoxaparin Sodium (Lovenox) 40 mg DAILY SUBQ 08/10/18 09:00 09/09/18 08:59 08/13/18 09:47 Hydrochlorothiazide (Hydrodiuril) 12.5 mg DAILY GT 08/10/18 09:00 09/09/18 08:59 08/13/18 09:14 Lorazepam (Ativan) 1 mg Q6H PRN ORAL For Anxiety 08/09/18 21:45 08/16/18 21:44 Metoclopramide HCl (Reglan) 10 mg Q6H GT 08/11/18 00:00 09/10/18 00:00 08/13/18 05:16 Metoclopramide HCl (Reglan) 10 mg Q6H PRN IVP Nausea & Vomiting 08/10/18 14:00 09/09/18 13:59 Metoprolol Tartrate (Lopressor) 25 mg Q12HR GT 08/09/18 21:00 09/08/18 20:59 08/13/18 09:19 Ondansetron HCl (Zofran) 4 mg Q6H PRN IVP Nausea & Vomiting 08/09/18 11:15 09/08/18 11:14 Potassium Chloride 100 ml @ 100 mls/hr Q1HR IVPB 08/13/18 08:00 08/13/18 11:59 08/13/18 08:30 Pravastatin Sodium (Pravachol) 40 mg DAILY GT 08/10/18 09:00 09/09/18 08:59 08/13/18 09:23 Janie Suero MD Aug 13, 2018 11:08
--- NOTE | 2018-08-13 12:14 | General Progress Note ---
Assessment/Plan Problem List: (1) Alzheimer's dementia ICD Codes: G30.9 - Alzheimer's disease, unspecified; F02.80 - Dementia in other diseases classified elsewhere without behavioral disturbance SNOMED: [id number] (2) Cerebral vascular disease ICD Codes: I67.9 - Cerebrovascular disease, unspecified SNOMED: [id number] Status: stable, progressing Assessment/Plan anxiety d/o Ativan prn donazapi; Subjective Neurologic/Psychiatric: Reports: anxiety, depressed, emotional problems Allergies: Coded Allergies: No Known Allergies (Unverified , 03/16/16) Objective Last 24 Hour Vital Signs Date Time Temp Pulse Resp B/P (MAP) Pulse Ox O2 Delivery O2 Flow Rate FiO2 08/13/18 10:23 98.2 85 17 127/73 (91) 99 08/13/18 09:19 73 127/73 08/13/18 09:00 Room Air 08/13/18 08:30 97.7 73 21 127/73 (91) 98 08/13/18 04:00 98.2 85 17 138/86 (103) 99 08/13/18 00:00 98.1 72 16 123/75 (91) 98 08/12/18 21:00 Room Air 08/12/18 20:26 87 136/81 08/12/18 20:00 99.0 87 16 136/81 (99) 98 08/12/18 16:03 98.6 70 18 129/71 (90) 97 Intake and Output 08/12/18 08/13/18 18:59 06:59 Intake Total 1515 ml 1905 ml Balance 1515 ml 1905 ml Intake Free Water 90 ml 180 ml IV Total 825 ml 825 ml Tube Feeding 600 ml 900 ml # Bowel Movements 1 Laboratory Tests 08/13/18 05:05: White Blood Count 10.9#H, Red Blood Count 3.73L, Hemoglobin 10.3L, Hematocrit 29.4L, Mean Corpuscular Volume 79L, Mean Corpuscular Hemoglobin 27.6, Mean Corpuscular Hemoglobin Concent 35.1, Red Cell Distribution Width 13.3, Platelet Count 208, Mean Platelet Volume 6.5, Neutrophils (%) (Auto) 76.5H, Lymphocytes ( %) (Auto) 13.0L, Monocytes (%) (Auto) 7.6, Eosinophils (%) (Auto) 2.2, Basophils (%) (Auto) 0.6, Sodium Level 141, Potassium Level 3.3L, Chloride Level 106, Carbon Dioxide Level 26, Anion Gap 9, Blood Urea Nitrogen 15, Creatinine 0.9, Estimat Glomerular Filtration Rate , Glucose Level 123H, Calcium Level 8.8, Phosphorus Level 2.4L, Magnesium Level 1.6L, Total Bilirubin 0.5, Aspartate Amino Transf (AST/SGOT) 32, Alanine Aminotransferase (ALT/SGPT) 40, Alkaline Phosphatase 91, Total Protein 7.8, Albumin 2.6L, Globulin 5.2, Albumin/Globulin Ratio 0.5L Height (Feet): 5 Height (Inches): 6.00 Weight (Pounds): 150 General Appearance: no apparent distress, alert Neurologic: alert, responsive, depressed affect Aruna Hussein MD Aug 13, 2018 12:14
--- NOTE | 2018-08-13 18:00 | Internal Med Progress Note ---
Subjective Date of Service: Aug 13, 2018 Physician Name Guanako Mensah Attending Physician Jonatan Arteaga MD Current Medications Medications (Trade) Dose Ordered Sig/Beatris Route PRN Reason Start Time Stop Time Status Last Admin Dose Admin Ascorbic Acid (Vitamin C) 500 mg DAILY GT 08/10/18 09:00 09/09/18 08:59 08/13/18 09:24 Aspirin (ASA) 81 mg DAILY GT 08/10/18 09:00 09/09/18 08:59 08/13/18 09:12 Dextrose (Dextrose 50%) 25 ml Q30M PRN IV Hypoglycemia 08/09/18 11:15 09/08/18 11:14 Dextrose (Dextrose 50%) 50 ml Q30M PRN IV Hypoglycemia 08/09/18 11:15 09/08/18 11:14 Dextrose/Sodium Chloride 1,000 ml @ 75 mls/hr [id number] IV 08/09/18 11:24 09/08/18 11:23 08/13/18 05:16 Donepezil HCl (Aricept) 5 mg QHS GT 08/09/18 21:00 09/08/18 20:59 08/12/18 20:26 Enoxaparin Sodium (Lovenox) 40 mg DAILY SUBQ 08/10/18 09:00 09/09/18 08:59 08/13/18 09:47 Hydrochlorothiazide (Hydrodiuril) 12.5 mg DAILY GT 08/10/18 09:00 09/09/18 08:59 08/13/18 09:14 Lorazepam (Ativan) 1 mg Q6H PRN ORAL For Anxiety 08/09/18 21:45 08/16/18 21:44 Metoclopramide HCl (Reglan) 10 mg Q6H GT 08/11/18 00:00 09/10/18 00:00 08/13/18 17:40 Metoclopramide HCl (Reglan) 10 mg Q6H PRN IVP Nausea & Vomiting 08/10/18 14:00 09/09/18 13:59 Metoprolol Tartrate (Lopressor) 25 mg Q12HR GT 08/09/18 21:00 09/08/18 20:59 08/13/18 09:19 Ondansetron HCl (Zofran) 4 mg Q6H PRN IVP Nausea & Vomiting 08/09/18 11:15 09/08/18 11:14 Pravastatin Sodium (Pravachol) 40 mg DAILY GT 08/10/18 09:00 09/09/18 08:59 08/13/18 09:23 Allergies: Coded Allergies: No Known Allergies (Unverified , 03/16/16) ROS Limited/Unobtainable: Yes Subjective 83 YO F admitted with leaking G-tube. Cover for Int Med-Dr Arteaga. Objective Last Vital Signs Date Time Temp Pulse Resp B/P (MAP) Pulse Ox O2 Delivery O2 Flow Rate FiO2 08/13/18 16:10 97.0 76 17 127/72 (90) 99 08/13/18 09:00 Room Air Laboratory Tests Test 08/13/18 05:05 White Blood Count 10.9 K/UL (4.8-10.8) #H Red Blood Count 3.73 M/UL (4.20-5.40) L Hemoglobin 10.3 G/DL (12.0-16.0) L Hematocrit 29.4 % (37.0-47.0) L Mean Corpuscular Volume 79 FL (80-99) L Mean Corpuscular Hemoglobin 27.6 PG (27.0-31.0) Mean Corpuscular Hemoglobin Concent 35.1 G/DL (32.0-36.0) Red Cell Distribution Width 13.3 % (11.6-14.8) Platelet Count 208 K/UL (150-450) Mean Platelet Volume 6.5 FL (6.5-10.1) Neutrophils (%) (Auto) 76.5 % (45.0-75.0) H Lymphocytes (%) (Auto) 13.0 % (20.0-45.0) L Monocytes (%) (Auto) 7.6 % (1.0-10.0) Eosinophils (%) (Auto) 2.2 % (0.0-3.0) Basophils (%) (Auto) 0.6 % (0.0-2.0) Sodium Level 141 MMOL/L (136-145) Potassium Level 3.3 MMOL/L (3.5-5.1) L Chloride Level 106 MMOL/L (98-107) Carbon Dioxide Level 26 MMOL/L (21-32) Anion Gap 9 mmol/L (5-15) Blood Urea Nitrogen 15 mg/dL (7-18) Creatinine 0.9 MG/DL (0.55-1.30) Estimat Glomerular Filtration Rate mL/min (>60) Glucose Level 123 MG/DL (74-106) H Calcium Level 8.8 MG/DL (8.5-10.1) Phosphorus Level 2.4 MG/DL (2.5-4.9) L Magnesium Level 1.6 MG/DL (1.8-2.4) L Total Bilirubin 0.5 MG/DL (0.2-1.0) Aspartate Amino Transf (AST/SGOT) 32 U/L (15-37) Alanine Aminotransferase (ALT/SGPT) 40 U/L (12-78) Alkaline Phosphatase 91 U/L (46-116) Total Protein 7.8 G/DL (6.4-8.2) Albumin 2.6 G/DL (3.4-5.0) L Globulin 5.2 g/dL Albumin/Globulin Ratio 0.5 (1.0-2.7) L Intake and Output 08/12/18 08/13/18 19:00 07:00 Intake Total 1565 ml 1855 ml Balance 1565 ml 1855 ml Intake Free Water 90 ml 180 ml IV Total 825 ml 825 ml Tube Feeding 650 ml 850 ml # Bowel Movements 1 Objective General Appearance: WD/WN, no apparent distress EENT: PERRL/EOMI, normal ENT inspection Neck: non-tender, normal alignment, supple, normal inspection Cardiovascular: normal peripheral pulses, normal rate, regular rhythm, no gallop/murmur, no JVD Respiratory/Chest: chest wall non-tender, lungs clear, normal breath sounds, no respiratory distress, no accessory muscle use Abdomen: normal bowel sounds, non tender, soft, no organomegaly, no mass Extremities: normal range of motion 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 (5) HTN (hypertension) Assessment & Plan: Continue HCTZ and lopressor (6) GERD (gastroesophageal reflux disease) (7) Dysphagia (8) Gastroparesis Assessment & Plan: Continue Guanako Dinh MD Aug 13, 2018 18:00
--- NOTE | 2018-08-13 18:42 | General Progress Note ---
Assessment/Plan Assessment/Plan Assessment - Dysphagia - S/p PEG - G tube site TF leak Recommendations - Reglan trial - continue TF - Elevate HOB - monitor residuals - EGD with GT change later this week Subjective Allergies: Coded Allergies: No Known Allergies (Unverified , 03/16/16) Subjective Above noted still with some GT site leak discussed DTR re leaking of GT DTR states problem started when original funnel tip GT changed to balloon replacement catheter advised can replace back with another original catheter If that option fails, can advance to GJ tube Daughter agreed Objective Last 24 Hour Vital Signs Date Time Temp Pulse Resp B/P (MAP) Pulse Ox O2 Delivery O2 Flow Rate FiO2 08/13/18 16:10 97.0 76 17 127/72 (90) 99 08/13/18 12:28 97.0 77 17 132/77 (95) 99 08/13/18 10:23 98.2 85 17 127/73 (91) 99 08/13/18 09:19 73 127/73 08/13/18 09:00 Room Air 08/13/18 08:30 97.7 73 21 127/73 (91) 98 08/13/18 04:00 98.2 85 17 138/86 (103) 99 08/13/18 00:00 98.1 72 16 123/75 (91) 98 08/12/18 21:00 Room Air 08/12/18 20:26 87 136/81 08/12/18 20:00 99.0 87 16 136/81 (99) 98 Intake and Output 08/12/18 08/13/18 19:00 07:00 Intake Total 1565 ml 1855 ml Balance 1565 ml 1855 ml Intake Free Water 90 ml 180 ml IV Total 825 ml 825 ml Tube Feeding 650 ml 850 ml # Bowel Movements 1 Laboratory Tests 08/13/18 05:05: White Blood Count 10.9#H, Red Blood Count 3.73L, Hemoglobin 10.3L, Hematocrit 29.4L, Mean Corpuscular Volume 79L, Mean Corpuscular Hemoglobin 27.6, Mean Corpuscular Hemoglobin Concent 35.1, Red Cell Distribution Width 13.3, Platelet Count 208, Mean Platelet Volume 6.5, Neutrophils (%) (Auto) 76.5H, Lymphocytes ( %) (Auto) 13.0L, Monocytes (%) (Auto) 7.6, Eosinophils (%) (Auto) 2.2, Basophils (%) (Auto) 0.6, Sodium Level 141, Potassium Level 3.3L, Chloride Level 106, Carbon Dioxide Level 26, Anion Gap 9, Blood Urea Nitrogen 15, Creatinine 0.9, Estimat Glomerular Filtration Rate , Glucose Level 123H, Calcium Level 8.8, Phosphorus Level 2.4L, Magnesium Level 1.6L, Total Bilirubin 0.5, Aspartate Amino Transf (AST/SGOT) 32, Alanine Aminotransferase (ALT/SGPT) 40, Alkaline Phosphatase 91, Total Protein 7.8, Albumin 2.6L, Globulin 5.2, Albumin/Globulin Ratio 0.5L Height (Feet): 5 Height (Inches): 6.00 Weight (Pounds): 150 Objective WDWN NCAT supple CTA RRR abd soft, GT in good position no edema Radha Middleton MD Aug 13, 2018 18:42
[2018-08-13] MEDS: Donepezil 5mg Tab GT SCH (20:16)
[2018-08-14] VITALS (11 sets, daily range): BP systolic 129–150; BP diastolic 71–92
[2018-08-14] MEDS: Metoclopramide 10mg/10ml Liq GT SCH ×4 (06:00→23:19)
[2018-08-14 06:36] LABS: EOSINOPHILS % (AUTO) 2.1 % (0.0-3.0); HEMATOCRIT 33.4 % (37.0-47.0); HEMOGLOBIN 10.9 G/DL (12.0-16.0); LYMPHOCYTES % (AUTO) 19.3 % (20.0-45.0); MEAN CORPUSCULAR VOLUME 81 FL (80-99); MONOCYTES % (AUTO) 13.1 % (1.0-10.0); NEUTROPHILS % (AUTO) 64.5 % (45.0-75.0); PLATELET COUNT 308 K/UL (150-450); RED BLOOD COUNT 4.12 M/UL (4.20-5.40); RED CELL DISTRIBUTION WIDTH 12.6 % (11.6-14.8); WHITE BLOOD COUNT 6.6 K/UL (4.8-10.8)
[2018-08-14 06:48] LABS: ALANINE AMINOTRANSFERASE 38 U/L (12-78); ALBUMIN 2.4 G/DL (3.4-5.0); ALBUMIN/GLOBULIN RATIO 0.5 (1.0-2.7); ALKALINE PHOSPHATASE 87 U/L (46-116); ANION GAP 8 mmol/L (5-15); ASPARTATE AMINO TRANSFERASE 27 U/L (15-37); BILIRUBIN,TOTAL 0.4 MG/DL (0.2-1.0); BLOOD UREA NITROGEN 13 mg/dL (7-18); CALCIUM 8.6 MG/DL (8.5-10.1); CARBON DIOXIDE 25 MMOL/L (21-32); CHLORIDE 106 MMOL/L (98-107); CREATININE 0.9 MG/DL (0.55-1.30); POTASSIUM 3.6 MMOL/L (3.5-5.1); SODIUM 139 MMOL/L (136-145)
[2018-08-14] MEDS: Aspirin Baby 81mg GT SCH (09:00)
[2018-08-14] MEDS: Enoxaparin 40mg Inj SUBQ SCH (09:00)
[2018-08-14] MEDS: Metoprolol 25mg tab GT SCH ×2 (10:27→20:11)
[2018-08-14] MEDS: Ascorbic Acid 500mg tab GT SCH (10:29)
--- NOTE | 2018-08-14 10:42 | Internal Med Progress Note ---
Subjective Date of Service: Aug 14, 2018 Physician Name MensahGuanako Attending Physician Jonatan Arteaga MD Current Medications Medications (Trade) Dose Ordered Sig/Beatris Route PRN Reason Start Time Stop Time Status Last Admin Dose Admin Ascorbic Acid (Vitamin C) 500 mg DAILY GT 08/10/18 09:00 09/09/18 08:59 08/14/18 10:29 Aspirin (ASA) 81 mg DAILY GT 08/10/18 09:00 09/09/18 08:59 08/13/18 09:12 Dextrose (Dextrose 50%) 25 ml Q30M PRN IV Hypoglycemia 08/09/18 11:15 09/08/18 11:14 Dextrose (Dextrose 50%) 50 ml Q30M PRN IV Hypoglycemia 08/09/18 11:15 09/08/18 11:14 Dextrose/Sodium Chloride 1,000 ml @ 75 mls/hr [id number] IV 08/09/18 11:24 09/08/18 11:23 08/13/18 22:00 Donepezil HCl (Aricept) 5 mg QHS GT 08/09/18 21:00 09/08/18 20:59 08/13/18 20:16 Enoxaparin Sodium (Lovenox) 40 mg DAILY SUBQ 08/10/18 09:00 09/09/18 08:59 08/13/18 09:47 Hydrochlorothiazide (Hydrodiuril) 12.5 mg DAILY GT 08/10/18 09:00 09/09/18 08:59 08/14/18 10:22 Lorazepam (Ativan) 1 mg Q6H PRN ORAL For Anxiety 08/09/18 21:45 08/16/18 21:44 Metoclopramide HCl (Reglan) 10 mg Q6H GT 08/11/18 00:00 09/10/18 00:00 08/13/18 23:54 Metoclopramide HCl (Reglan) 10 mg Q6H PRN IVP Nausea & Vomiting 08/10/18 14:00 09/09/18 13:59 Metoprolol Tartrate (Lopressor) 25 mg Q12HR GT 08/09/18 21:00 09/08/18 20:59 08/14/18 10:27 Ondansetron HCl (Zofran) 4 mg Q6H PRN IVP Nausea & Vomiting 08/09/18 11:15 09/08/18 11:14 Pravastatin Sodium (Pravachol) 40 mg DAILY GT 08/10/18 09:00 09/09/18 08:59 08/14/18 10:28 Allergies: Coded Allergies: No Known Allergies (Unverified , 03/16/16) ROS Limited/Unobtainable: Yes Subjective 83 YO F admitted with leaking G-tube. Cover for Int Med-Dr Arteaga. Await endoscopy for G-tube change this week. Objective Last Vital Signs Date Time Temp Pulse Resp B/P (MAP) Pulse Ox O2 Delivery O2 Flow Rate FiO2 08/14/18 10:27 78 139/79 08/14/18 10:14 Room Air 08/14/18 08:15 98.6 18 99 Laboratory Tests Test 08/14/18 06:05 White Blood Count 6.6 K/UL (4.8-10.8) Red Blood Count 4.12 M/UL (4.20-5.40) L Hemoglobin 10.9 G/DL (12.0-16.0) L Hematocrit 33.4 % (37.0-47.0) L Mean Corpuscular Volume 81 FL (80-99) Mean Corpuscular Hemoglobin 26.5 PG (27.0-31.0) L Mean Corpuscular Hemoglobin Concent 32.7 G/DL (32.0-36.0) Red Cell Distribution Width 12.6 % (11.6-14.8) Platelet Count 308 K/UL (150-450) Mean Platelet Volume 5.6 FL (6.5-10.1) L Neutrophils (%) (Auto) 64.5 % (45.0-75.0) Lymphocytes (%) (Auto) 19.3 % (20.0-45.0) L Monocytes (%) (Auto) 13.1 % (1.0-10.0) H Eosinophils (%) (Auto) 2.1 % (0.0-3.0) Basophils (%) (Auto) 1.0 % (0.0-2.0) Sodium Level 139 MMOL/L (136-145) Potassium Level 3.6 MMOL/L (3.5-5.1) Chloride Level 106 MMOL/L (98-107) Carbon Dioxide Level 25 MMOL/L (21-32) Anion Gap 8 mmol/L (5-15) Blood Urea Nitrogen 13 mg/dL (7-18) Creatinine 0.9 MG/DL (0.55-1.30) Estimat Glomerular Filtration Rate mL/min (>60) Glucose Level 115 MG/DL (74-106) H Calcium Level 8.6 MG/DL (8.5-10.1) Total Bilirubin 0.4 MG/DL (0.2-1.0) Aspartate Amino Transf (AST/SGOT) 27 U/L (15-37) Alanine Aminotransferase (ALT/SGPT) 38 U/L (12-78) Alkaline Phosphatase 87 U/L (46-116) Total Protein 7.6 G/DL (6.4-8.2) Albumin 2.4 G/DL (3.4-5.0) L Globulin 5.2 g/dL Albumin/Globulin Ratio 0.5 (1.0-2.7) L Intake and Output 08/13/18 08/14/18 18:59 06:59 Intake Total 800 ml 825 ml Balance 800 ml 825 ml Intake Free Water 50 ml IV Total 150 ml 825 ml Tube Feeding 600 ml # Voids 3 Objective General Appearance: WD/WN, no apparent distress EENT: PERRL/EOMI, normal ENT inspection Neck: non-tender, normal alignment, supple, normal inspection Cardiovascular: normal peripheral pulses, normal rate, regular rhythm, no gallop/murmur, no JVD Respiratory/Chest: chest wall non-tender, lungs clear, normal breath sounds, no respiratory distress, no accessory muscle use Abdomen: normal bowel sounds, non tender, soft, no organomegaly, no mass Extremities: normal range of motion Neurologic: wire brush maker II-XII grossly normal, no motor/sensory deficits Skin: normal pigmentation, warm/dry Assessment/Plan Problem List: (1) Alzheimer's dementia (2) Cerebral vascular disease (3) 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
--- NOTE | 2018-08-14 10:47 | Pulmonology Progress Note ---
Assessment/Plan Problems: (1) ARF (acute renal failure) (2) Malfunction of gastrostomy tube (3) At high risk for aspiration (4) Anemia (5) Alzheimer's dementia (6) HTN (hypertension) (7) Feeding by G-tube (8) Cerebral vascular disease Assessment/Plan still leaking GI evaluation appreciated, pt might need a new Jtube check electrolytes monitor BP wound care consult symptomatic treatment social services aide to find DOPA Subjective ROS Limited/Unobtainable: Yes Interval Events: awake, comfortable Allergies: Coded Allergies: No Known Allergies (Unverified , 03/16/16) Objective Last 24 Hour Vital Signs Date Time Temp Pulse Resp B/P (MAP) Pulse Ox O2 Delivery O2 Flow Rate FiO2 08/14/18 10:27 78 139/79 08/14/18 10:14 Room Air 08/14/18 08:15 98.6 76 18 130/76 (94) 99 08/14/18 04:00 97.5 84 20 129/83 (98) 100 08/14/18 00:00 98.7 73 20 145/78 (100) 99 08/13/18 21:00 Room Air 08/13/18 20:16 77 142/77 08/13/18 20:00 99.4 77 20 142/77 (98) 99 08/13/18 16:10 97.0 76 17 127/72 (90) 99 08/13/18 12:28 97.0 77 17 132/77 (95) 99 Intake and Output 08/13/18 08/14/18 18:59 06:59 Intake Total 800 ml 825 ml Balance 800 ml 825 ml Intake Free Water 50 ml IV Total 150 ml 825 ml Tube Feeding 600 ml # Voids 3 General Appearance: cachetic HEENT: normocephalic, atraumatic Respiratory/Chest: chest wall non-tender, lungs clear Breasts: no masses Cardiovascular: regular rhythm, no JVD Abdomen: no organomegaly, no scars Extremities: no cyanosis Skin: no rash Laboratory Tests 08/14/18 06:05: White Blood Count 6.6, Red Blood Count 4.12L, Hemoglobin 10.9L, Hematocrit 33.4L , Mean Corpuscular Volume 81, Mean Corpuscular Hemoglobin 26.5L, Mean Corpuscular Hemoglobin Concent 32.7, Red Cell Distribution Width 12.6, Platelet Count 308, Mean Platelet Volume 5.6L, Neutrophils (%) (Auto) 64.5, Lymphocytes ( %) (Auto) 19.3L, Monocytes (%) (Auto) 13.1H, Eosinophils (%) (Auto) 2.1, Basophils (%) (Auto) 1.0, Sodium Level 139, Potassium Level 3.6, Chloride Level 106, Carbon Dioxide Level 25, Anion Gap 8, Blood Urea Nitrogen 13, Creatinine 0.9, Estimat Glomerular Filtration Rate , Glucose Level 115H, Calcium Level 8.6 , Total Bilirubin 0.4, Aspartate Amino Transf (AST/SGOT) 27, Alanine Aminotransferase (ALT/SGPT) 38, Alkaline Phosphatase 87, Total Protein 7.6, Albumin 2.4L, Globulin 5.2, Albumin/Globulin Ratio 0.5L Current Medications Medications (Trade) Dose Ordered Sig/Beatris Route PRN Reason Start Time Stop Time Status Last Admin Dose Admin Ascorbic Acid (Vitamin C) 500 mg DAILY GT 08/10/18 09:00 09/09/18 08:59 08/14/18 10:29 Aspirin (ASA) 81 mg DAILY GT 08/10/18 09:00 09/09/18 08:59 08/13/18 09:12 Dextrose (Dextrose 50%) 25 ml Q30M PRN IV Hypoglycemia 08/09/18 11:15 09/08/18 11:14 Dextrose (Dextrose 50%) 50 ml Q30M PRN IV Hypoglycemia 08/09/18 11:15 09/08/18 11:14 Dextrose/Sodium Chloride 1,000 ml @ 75 mls/hr [id number] IV 08/09/18 11:24 09/08/18 11:23 08/13/18 22:00 Donepezil HCl (Aricept) 5 mg QHS GT 08/09/18 21:00 09/08/18 20:59 08/13/18 20:16 Enoxaparin Sodium (Lovenox) 40 mg DAILY SUBQ 08/10/18 09:00 09/09/18 08:59 08/13/18 09:47 Hydrochlorothiazide (Hydrodiuril) 12.5 mg DAILY GT 08/10/18 09:00 09/09/18 08:59 08/14/18 10:22 Lorazepam (Ativan) 1 mg Q6H PRN ORAL For Anxiety 08/09/18 21:45 08/16/18 21:44 Metoclopramide HCl (Reglan) 10 mg Q6H GT 08/11/18 00:00 09/10/18 00:00 08/13/18 23:54 Metoclopramide HCl (Reglan) 10 mg Q6H PRN IVP Nausea & Vomiting 08/10/18 14:00 09/09/18 13:59 Metoprolol Tartrate (Lopressor) 25 mg Q12HR GT 08/09/18 21:00 09/08/18 20:59 08/14/18 10:27 Ondansetron HCl (Zofran) 4 mg Q6H PRN IVP Nausea & Vomiting 08/09/18 11:15 09/08/18 11:14 Pravastatin Sodium (Pravachol) 40 mg DAILY GT 08/10/18 09:00 09/09/18 08:59 08/14/18 10:28 Janie Suero MD Aug 14, 2018 10:47
--- NOTE | 2018-08-14 10:50 | Pre-Procedure Note/Attestation ---
Pre-Procedure Note/Attestation Complete Prior to Procedure Planned Procedure: not applicable Procedure Narrative: esophagogastroduodenoscopy /peg Indications for Procedure Pre-Operative Diagnosis: dysphagia Attestation I attest that I discussed the nature of the procedure; its benefits; risks and complications; and alternatives (and the risks and benefits of such alternatives ), prior to the procedure, with the patient (or the patient's legal telephone claims representative). I attest that, if there was a reasonable possibility of needing a blood transfusion, the patient (or the patient's legal telephone claims representative) was given the [facility] standardized written summary, pursuant to the Jerson Domenic Blood Safety Act ([place] Health and Safety Code # 1645, as amended). I attest that I re-evaluated the patient just prior to the surgery and that there has been no change in the patient's H&P, except as documented below: Júnior Santoro MD Aug 14, 2018 10:50
[2018-08-14] MEDS ORDERED: NS 500ML IVPB ONE (12:05)
[2018-08-14] MEDS ORDERED: cefOXitin 1gm Inj IVP ONE (12:06)
--- NOTE | 2018-08-14 12:13 | Endoscopy Procedure Note ---
Endoscopy Procedure Note General Indication for Procedure: dysphagia Procedures Performed: EGD, PEG Operative Findings/Diagnosis: same Specimen: none Pt Tolerated Procedure Well: Yes Estimated Blood Loss: none Anesthesia Anesthesiologist: ezio Anesthesia: MAC Inserted Devices Implant(s) used?: No GI Core Measures 50 yrs or older w/o bx or poly: Not Applicable 10yrs. F/U not recommended: Not Applicable Júnior Santoro MD Aug 14, 2018 12:13
[2018-08-14] MEDS ORDERED: Atropine Inj 1mg/10ml Syr IV PRN (12:30)
[2018-08-14] MEDS ORDERED: Midazolam 2mg/2ml Inj IVP PRN (12:30)
[2018-08-14] MEDS ORDERED: DiphenhydrAMINE 50mg/ml Inj IVP PRN (12:30)
[2018-08-14] MEDS ORDERED: fentaNYL 100 mcg/2 mL IV PRN (12:30)
--- NOTE | 2018-08-14 12:56 | Anethesia Preoperative Eval ---
Anesthesia Pre-op PMH/ROS General Date of Evaluation: Aug 14, 2018 Time of Evaluation: 11:59 Anesthesiologist: preston ASA Score: ASA 4 Mallampati Score Class I : Soft palate, uvula, fauces, pillars visible Class II: Soft palate, uvula, fauces visible Class III: Soft palate, base of uvula visible Class IV: Only hard plate visible Mallampati Classification: Class II Surgeon: radha Diagnosis: g-tube dysfunction Surgical Procedure: egd/peg Anesthesia History: none Social History: smoking - nonsmoker Family History: no anesthesia problems Allergies: Coded Allergies: No Known Allergies (Unverified , 03/16/16) Medications: see eMAR Patient NPO?: Yes Past Medical History Cardiovascular: Reports: HTN Gastrointestinal/Genitourinary: Reports: GERD Neurologic/Psychiatric: Reports: dementia, CVA Anesthesia Pre-op Phys. Exam Physician Exam Last Vital Signs Date Time Temp Pulse Resp B/P (MAP) Pulse Ox O2 Delivery O2 Flow Rate FiO2 08/14/18 12:49 75 20 143/81 98 Room Air 2 08/14/18 12:30 98.7 Constitutional: NAD Neurologic: CN 2-12 intact Cardiovascular: RRR Respiratory: CTA Gastrointestinal: S/NT/ND Airway Exam Mallampati Score: Class II MO: limited Neck: flexible TMD: 2fb ROM: limited Teeth: missing, broken Anesthesia Pre-op A/P Labs Hematology Test 08/14/18 06:05 White Blood Count 6.6 K/UL (4.8-10.8) Red Blood Count 4.12 M/UL (4.20-5.40) L Hemoglobin 10.9 G/DL (12.0-16.0) L Hematocrit 33.4 % (37.0-47.0) L Mean Corpuscular Volume 81 FL (80-99) Mean Corpuscular Hemoglobin 26.5 PG (27.0-31.0) L Mean Corpuscular Hemoglobin Concent 32.7 G/DL (32.0-36.0) Red Cell Distribution Width 12.6 % (11.6-14.8) Platelet Count 308 K/UL (150-450) Mean Platelet Volume 5.6 FL (6.5-10.1) L Neutrophils (%) (Auto) 64.5 % (45.0-75.0) Lymphocytes (%) (Auto) 19.3 % (20.0-45.0) L Monocytes (%) (Auto) 13.1 % (1.0-10.0) H Eosinophils (%) (Auto) 2.1 % (0.0-3.0) Basophils (%) (Auto) 1.0 % (0.0-2.0) Chemistry Test 08/14/18 06:05 Sodium Level 139 MMOL/L (136-145) Potassium Level 3.6 MMOL/L (3.5-5.1) Chloride Level 106 MMOL/L (98-107) Carbon Dioxide Level 25 MMOL/L (21-32) Anion Gap 8 mmol/L (5-15) Blood Urea Nitrogen 13 mg/dL (7-18) Creatinine 0.9 MG/DL (0.55-1.30) Estimat Glomerular Filtration Rate mL/min (>60) Glucose Level 115 MG/DL (74-106) H Calcium Level 8.6 MG/DL (8.5-10.1) Total Bilirubin 0.4 MG/DL (0.2-1.0) Aspartate Amino Transf (AST/SGOT) 27 U/L (15-37) Alanine Aminotransferase (ALT/SGPT) 38 U/L (12-78) Alkaline Phosphatase 87 U/L (46-116) Total Protein 7.6 G/DL (6.4-8.2) Albumin 2.4 G/DL (3.4-5.0) L Globulin 5.2 g/dL Albumin/Globulin Ratio 0.5 (1.0-2.7) L Risk Assessment & Plan Assessment: asa4 Plan: mac Pre-Antibiotics Drug: cefoxitin 1gm Given Within 1 Hr of Incision: Yes Time Given: 12:00 Mary Nugent MD Aug 14, 2018 12:56
--- NOTE | 2018-08-14 12:58 | Immediate Post-Op Evaluation ---
Immediate Post-Op Evalulation Immediate Post-Op Evalulation Procedure: egd/peg Date of Evaluation: Aug 14, 2018 Time of Evaluation: 12:37 IV Fluids: 0.9ns 200ml Blood Products: none Estimated Blood Loss: negligible Blood Pressure Systolic: 126 Blood Pressure Diastolic: 80 Pulse Rate: 73 Respiratory Rate: 18 O2 Sat by Pulse Oximetry: 100 Temperature (Fahrenheit): 98.9 Pain Score (1-10): 0 Nausea: No Vomiting: No Complications none Patient Status: awake, reacts, patent Hydration Status: adequate Drug: cefoxitin 1gm Given Within 1 Hr of Incision: Yes - 1200 Mary Nugent MD Aug 14, 2018 12:58
--- NOTE | 2018-08-14 13:00 | 48 Hour Post Anesthesia Eval ---
Post Anesthesia Evaluation Procedure: egd/peg Date of Evaluation: Aug 14, 2018 Time of Evaluation: 12:39 Blood Pressure Systolic: 126 0: 82 Pulse Rate: 73 Respiratory Rate: 18 Temperature (Fahrenheit): 98.9 O2 Sat by Pulse Oximetry: 100 Airway: patent Nausea: No Vomiting: No Pain Intensity: 0 Hydration Status: adequate Cardiopulmonary Status: stable Mental Status/LOC: patient returned to baseline Post-Anesthesia Complications: none Follow-up care needed: N/A Mary Nugent MD Aug 14, 2018 13:00
[2018-08-14] MEDS: D5NS 1,000 ML IV SCH (13:38)
--- NOTE | 2018-08-14 15:30 | Procedure Note ---
DATE OF PROCEDURE: 08/14/2018 SURGEON: Júnior Santoro M.D. ANESTHESIOLOGIST: Dr. Sheikh. REFERRING PHYSICIAN: Radha Middleton M.D. PROCEDURE: Upper endoscopy with PEG placement. ANESTHESIA: Per Dr. Sheikh. INSTRUMENT: Olympus adult flexible upper endoscope. INDICATION: Dysphagia. The procedure, risks, benefits, and possible consequences, including hemorrhage, aspiration, perforation and infection, and alternative treatments, were explained to the patient/legal guardian by Dr. Júnior Santoro and the patient/legal guardian understood and accepted these risks. DESCRIPTION OF PROCEDURE: After informed consent was obtained and the patient was adequately sedated, the Olympus upper endoscope was advanced from the mouth into second portion of duodenum and retroflexion was performed in the stomach. The patient had old G-tube with balloon-type inside in place. We deflated the balloon. Through the same hole, we introduced a wire, grabbed the wire with a snare, and over a guidewire, 20-Sami pull type of G-tube was successfully placed in the epigastric area. The distance from the tip of the tube to skin was about 2.5-3 cm in size. The patient tolerated the procedure very well without any complication. SUMMARY OF FINDINGS: Status post G-tube placement. RECOMMENDATIONS: Abdominal binder. Elevate the head of the bed at all times. G-tube flush. G-tube care. Start tube feeding later today. I want to thank Dr. Middleton for this kind referral. Júnior Santoro M.D. DR: Yo JOB#: [id number] CC: Radha Middleton M.D.
[2018-08-14] MEDS: Donepezil 5mg Tab GT SCH (20:11)
--- NOTE | 2018-08-14 20:43 | General Progress Note ---
Assessment/Plan Assessment/Plan Assessment - Dysphagia / OBS - G tube site TF leak - S/p PEG change Recommendations - d/c reglan - continue TF via new GT - Elevate HOB - monitor residuals Subjective Allergies: Coded Allergies: No Known Allergies (Unverified , 03/16/16) Subjective Above noted s/p EGD with GT change no new events overnight Objective Last 24 Hour Vital Signs Date Time Temp Pulse Resp B/P (MAP) Pulse Ox O2 Delivery O2 Flow Rate FiO2 08/14/18 20:11 82 146/78 08/14/18 20:00 98.5 82 16 146/78 (100) 97 08/14/18 15:42 97.9 77 18 147/78 (101) 99 08/14/18 13:00 73 18 100 08/14/18 12:58 73 18 100 08/14/18 12:49 75 20 143/81 98 Room Air 2 08/14/18 12:45 72 20 137/81 100 Room Air 2 08/14/18 12:40 79 21 150/92 100 Nasal Cannula 2 08/14/18 12:35 71 23 131/81 100 Nasal Cannula 4 08/14/18 12:30 98.7 70 23 129/81 100 Nasal Cannula 4 08/14/18 11:55 98.5 72 18 134/71 (92) 99 08/14/18 10:27 78 139/79 08/14/18 10:14 Room Air 08/14/18 08:15 98.6 76 18 130/76 (94) 99 08/14/18 04:00 97.5 84 20 129/83 (98) 100 08/14/18 00:00 98.7 73 20 145/78 (100) 99 08/13/18 21:00 Room Air Intake and Output 08/13/18 08/14/18 19:00 07:00 Intake Total 825 ml 825 ml Balance 825 ml 825 ml Intake Free Water 50 ml IV Total 225 ml 825 ml Tube Feeding 550 ml # Voids 3 Laboratory Tests 08/14/18 06:05: White Blood Count 6.6, Red Blood Count 4.12L, Hemoglobin 10.9L, Hematocrit 33.4L , Mean Corpuscular Volume 81, Mean Corpuscular Hemoglobin 26.5L, Mean Corpuscular Hemoglobin Concent 32.7, Red Cell Distribution Width 12.6, Platelet Count 308, Mean Platelet Volume 5.6L, Neutrophils (%) (Auto) 64.5, Lymphocytes ( %) (Auto) 19.3L, Monocytes (%) (Auto) 13.1H, Eosinophils (%) (Auto) 2.1, Basophils (%) (Auto) 1.0, Sodium Level 139, Potassium Level 3.6, Chloride Level 106, Carbon Dioxide Level 25, Anion Gap 8, Blood Urea Nitrogen 13, Creatinine 0.9, Estimat Glomerular Filtration Rate , Glucose Level 115H, Calcium Level 8.6 , Total Bilirubin 0.4, Aspartate Amino Transf (AST/SGOT) 27, Alanine Aminotransferase (ALT/SGPT) 38, Alkaline Phosphatase 87, Total Protein 7.6, Albumin 2.4L, Globulin 5.2, Albumin/Globulin Ratio 0.5L Height (Feet): 5 Height (Inches): 6.00 Weight (Pounds): 150 Objective WDWN NCAT supple CTA RRR abd soft, (+) GT no edema Radha Middleton MD Aug 14, 2018 20:43
--- NOTE | 2018-08-14 20:49 | General Progress Note ---
Assessment/Plan Problem List: (1) Alzheimer's dementia ICD Codes: G30.9 - Alzheimer's disease, unspecified; F02.80 - Dementia in other diseases classified elsewhere without behavioral disturbance SNOMED: 49567633 (2) Cerebral vascular disease ICD Codes: I67.9 - Cerebrovascular disease, unspecified SNOMED: 25044993 Assessment/Plan anxiety d/o Ativan prn donazapi; Subjective Neurologic/Psychiatric: Reports: anxiety, depressed, emotional problems Allergies: Coded Allergies: No Known Allergies (Unverified , 03/16/16) Objective Last 24 Hour Vital Signs Date Time Temp Pulse Resp B/P (MAP) Pulse Ox O2 Delivery O2 Flow Rate FiO2 08/14/18 20:11 82 146/78 08/14/18 20:00 98.5 82 16 146/78 (100) 97 08/14/18 15:42 97.9 77 18 147/78 (101) 99 08/14/18 13:00 73 18 100 08/14/18 12:58 73 18 100 08/14/18 12:49 75 20 143/81 98 Room Air 2 08/14/18 12:45 72 20 137/81 100 Room Air 2 08/14/18 12:40 79 21 150/92 100 Nasal Cannula 2 08/14/18 12:35 71 23 131/81 100 Nasal Cannula 4 08/14/18 12:30 98.7 70 23 129/81 100 Nasal Cannula 4 08/14/18 11:55 98.5 72 18 134/71 (92) 99 08/14/18 10:27 78 139/79 08/14/18 10:14 Room Air 08/14/18 08:15 98.6 76 18 130/76 (94) 99 08/14/18 04:00 97.5 84 20 129/83 (98) 100 08/14/18 00:00 98.7 73 20 145/78 (100) 99 08/13/18 21:00 Room Air Intake and Output 08/13/18 08/14/18 19:00 07:00 Intake Total 825 ml 825 ml Balance 825 ml 825 ml Intake Free Water 50 ml IV Total 225 ml 825 ml Tube Feeding 550 ml # Voids 3 Laboratory Tests 08/14/18 06:05: White Blood Count 6.6, Red Blood Count 4.12L, Hemoglobin 10.9L, Hematocrit 33.4L , Mean Corpuscular Volume 81, Mean Corpuscular Hemoglobin 26.5L, Mean Corpuscular Hemoglobin Concent 32.7, Red Cell Distribution Width 12.6, Platelet Count 308, Mean Platelet Volume 5.6L, Neutrophils (%) (Auto) 64.5, Lymphocytes ( %) (Auto) 19.3L, Monocytes (%) (Auto) 13.1H, Eosinophils (%) (Auto) 2.1, Basophils (%) (Auto) 1.0, Sodium Level 139, Potassium Level 3.6, Chloride Level 106, Carbon Dioxide Level 25, Anion Gap 8, Blood Urea Nitrogen 13, Creatinine 0.9, Estimat Glomerular Filtration Rate , Glucose Level 115H, Calcium Level 8.6 , Total Bilirubin 0.4, Aspartate Amino Transf (AST/SGOT) 27, Alanine Aminotransferase (ALT/SGPT) 38, Alkaline Phosphatase 87, Total Protein 7.6, Albumin 2.4L, Globulin 5.2, Albumin/Globulin Ratio 0.5L Height (Feet): 5 Height (Inches): 6.00 Weight (Pounds): 150 General Appearance: alert Neurologic: oriented x 3, responsive, depressed affect Aruna Hussein MD Aug 14, 2018 20:49
[2018-08-15] VITALS: BP 144/83
[2018-08-15] MEDS: D5NS 1,000 ML IV SCH ×3 (00:44→13:41)
[2018-08-15 04:00] VITALS: BP 118/60
[2018-08-15] MEDS: Metoclopramide 10mg/10ml Liq GT SCH ×4 (05:11→22:50)
[2018-08-15 07:02] LABS: ALANINE AMINOTRANSFERASE 48 U/L (12-78); ALBUMIN 2.4 G/DL (3.4-5.0); ALBUMIN/GLOBULIN RATIO 0.5 (1.0-2.7); ALKALINE PHOSPHATASE 99 U/L (46-116); ANION GAP 8 mmol/L (5-15); ASPARTATE AMINO TRANSFERASE 35 U/L (15-37); BILIRUBIN,TOTAL 0.4 MG/DL (0.2-1.0); BLOOD UREA NITROGEN 15 mg/dL (7-18); CALCIUM 8.6 MG/DL (8.5-10.1); CARBON DIOXIDE 26 MMOL/L (21-32); CHLORIDE 104 MMOL/L (98-107); CREATININE 0.9 MG/DL (0.55-1.30); PHOSPHORUS 2.9 MG/DL (2.5-4.9); POTASSIUM 3.6 MMOL/L (3.5-5.1); SODIUM 138 MMOL/L (136-145)
[2018-08-15 07:13] LABS: BASOPHILS % (AUTO) 0.5 % (0.0-2.0); EOSINOPHILS % (AUTO) 2.7 % (0.0-3.0); HEMATOCRIT 32.9 % (37.0-47.0); HEMOGLOBIN 10.9 G/DL (12.0-16.0); LYMPHOCYTES % (AUTO) 20.8 % (20.0-45.0); MEAN CORPUSCULAR VOLUME 81 FL (80-99); MONOCYTES % (AUTO) 15.8 % (1.0-10.0); NEUTROPHILS % (AUTO) 60.3 % (45.0-75.0); PLATELET COUNT 326 K/UL (150-450); RED BLOOD COUNT 4.06 M/UL (4.20-5.40); RED CELL DISTRIBUTION WIDTH 12.6 % (11.6-14.8); WHITE BLOOD COUNT 5.7 K/UL (4.8-10.8)
[2018-08-15 08:00] VITALS: BP 110/86
--- NOTE | 2018-08-15 08:27 | Pulmonology Progress Note ---
Assessment/Plan Assessment/Plan ASSESSMENT malfunctioning G-tube/leaking high aspiration risk risk s/p G-tube replacement Alzheimer dementia cerebrovascular disease hypertension anemia anxiety disorder acute kidney injury, likely due to dehydration - resolved PLAN OF CARE Med Surg floor s/p replacement of G-tube GI follows pt with high aspiration risk O2 prn to keep pulse ox above 92 %, pulm toielt prn strict aspiration / reflux precautions G-tube feeding, monitor tolerance, G-tube site care bowel regimen GI prophylaxis continue aspirin BP management with BB and HcTz, optimize prn monitor H&H , remained stable anemia work/up only if hemoglobin drops below 10 monitor renal parameters, electrolytes, avoid nephrotoxic, replace electrolytes as needed supportive care pain management as needed discharge planning DNR/DNI status case discussed and evaluated by supervising physician Subjective Allergies: Coded Allergies: No Known Allergies (Unverified , 03/16/16) Subjective tolerates GT feeding pulse ox stable on RA, no signs of resp distress Objective Last 24 Hour Vital Signs Date Time Temp Pulse Resp B/P (MAP) Pulse Ox O2 Delivery O2 Flow Rate FiO2 08/15/18 04:00 97.4 72 16 118/60 (79) 100 08/15/18 00:00 99.2 79 16 144/83 (103) 100 08/14/18 20:51 Room Air 08/14/18 20:11 82 146/78 08/14/18 20:00 98.5 82 16 146/78 (100) 97 08/14/18 15:42 97.9 77 18 147/78 (101) 99 08/14/18 13:00 73 18 100 08/14/18 12:58 73 18 100 08/14/18 12:49 75 20 143/81 98 Room Air 2 08/14/18 12:45 72 20 137/81 100 Room Air 2 08/14/18 12:40 79 21 150/92 100 Nasal Cannula 2 08/14/18 12:35 71 23 131/81 100 Nasal Cannula 4 08/14/18 12:30 98.7 70 23 129/81 100 Nasal Cannula 4 08/14/18 11:55 98.5 72 18 134/71 (92) 99 08/14/18 10:27 78 139/79 08/14/18 10:14 Room Air Intake and Output 08/14/18 08/15/18 19:00 07:00 Intake Total 810 ml 1530 ml Output Total 500 ml Balance 310 ml 1530 ml Intake Free Water 130 ml 45 ml IV Total 450 ml 825 ml Tube Feeding 230 ml 660 ml Output Urine Total 500 ml # Voids 1 # Bowel Movements 2 1 General Appearance: no acute distress, other - bedridden, elderly AA demalwe, awake, nonverbal HEENT: normocephalic, atraumatic Respiratory/Chest: lungs clear - with moderate air exchange Abdomen: soft, non tender, non distended, other - G tube Extremities: no edema, pedal pulses normal Neurologic/Psychiatric: abnormal gait Musculoskeletal: atrophy - BLE Laboratory Tests 08/15/18 06:35: White Blood Count 5.7, Red Blood Count 4.06L, Hemoglobin 10.9L, Hematocrit 32.9L , Mean Corpuscular Volume 81, Mean Corpuscular Hemoglobin 27.0, Mean Corpuscular Hemoglobin Concent 33.2, Red Cell Distribution Width 12.6, Platelet Count 326, Mean Platelet Volume 5.7L, Neutrophils (%) (Auto) 60.3, Lymphocytes ( %) (Auto) 20.8, Monocytes (%) (Auto) 15.8H, Eosinophils (%) (Auto) 2.7, Basophils (%) (Auto) 0.5, Sodium Level 138, Potassium Level 3.6, Chloride Level 104, Carbon Dioxide Level 26, Anion Gap 8, Blood Urea Nitrogen 15, Creatinine 0.9, Estimat Glomerular Filtration Rate , Glucose Level 126H, Calcium Level 8.6 , Phosphorus Level 2.9, Magnesium Level 1.7L, Total Bilirubin 0.4, Aspartate Amino Transf (AST/SGOT) 35, Alanine Aminotransferase (ALT/SGPT) 48, Alkaline Phosphatase 99, Total Protein 7.7, Albumin 2.4L, Globulin 5.3, Albumin/Globulin Ratio 0.5L Current Medications Medications (Trade) Dose Ordered Sig/Beatris Route PRN Reason Start Time Stop Time Status Last Admin Dose Admin Ascorbic Acid (Vitamin C) 500 mg DAILY GT 08/10/18 09:00 09/09/18 08:59 08/14/18 10:29 Aspirin (ASA) 81 mg DAILY GT 08/10/18 09:00 09/09/18 08:59 08/13/18 09:12 Dextrose (Dextrose 50%) 25 ml Q30M PRN IV Hypoglycemia 08/09/18 11:15 09/08/18 11:14 Dextrose (Dextrose 50%) 50 ml Q30M PRN IV Hypoglycemia 08/09/18 11:15 09/08/18 11:14 Dextrose/Sodium Chloride 1,000 ml @ 75 mls/hr [id number] IV 08/09/18 11:24 09/08/18 11:23 08/15/18 04:00 Donepezil HCl (Aricept) 5 mg QHS GT 08/09/18 21:00 09/08/18 20:59 08/14/18 20:11 Enoxaparin Sodium (Lovenox) 40 mg DAILY SUBQ 08/10/18 09:00 09/09/18 08:59 08/13/18 09:47 Hydrochlorothiazide (Hydrodiuril) 12.5 mg DAILY GT 08/10/18 09:00 09/09/18 08:59 08/14/18 10:22 Lorazepam (Ativan) 1 mg Q6H PRN ORAL For Anxiety 08/09/18 21:45 08/16/18 21:44 Metoclopramide HCl (Reglan) 10 mg Q6H GT 08/11/18 00:00 09/10/18 00:00 08/15/18 05:11 Metoclopramide HCl (Reglan) 10 mg Q6H PRN IVP Nausea & Vomiting 08/10/18 14:00 09/09/18 13:59 Metoprolol Tartrate (Lopressor) 25 mg Q12HR GT 08/09/18 21:00 09/08/18 20:59 08/14/18 20:11 Ondansetron HCl (Zofran) 4 mg Q6H PRN IVP Nausea & Vomiting 08/09/18 11:15 09/08/18 11:14 Pravastatin Sodium (Pravachol) 40 mg DAILY GT 08/10/18 09:00 09/09/18 08:59 08/14/18 10:28 Erika Ferrara RECORDS SPECIALIST Aug 15, 2018 08:27
[2018-08-15] MEDS: Ascorbic Acid 500mg tab GT SCH (08:48)
[2018-08-15] MEDS: Aspirin Baby 81mg GT SCH (08:48)
[2018-08-15] MEDS: Metoprolol 25mg tab GT SCH ×2 (08:49→20:20)
[2018-08-15] MEDS: Enoxaparin 40mg Inj SUBQ SCH (08:50)
[2018-08-15 12:00] VITALS: BP 121/86
--- NOTE | 2018-08-15 12:58 | Internal Med Progress Note ---
Subjective Date of Service: Aug 15, 2018 Physician Name Guanako Mensah Attending Physician Jonatan Arteaga MD Current Medications Medications (Trade) Dose Ordered Sig/Beatris Route PRN Reason Start Time Stop Time Status Last Admin Dose Admin Ascorbic Acid (Vitamin C) 500 mg DAILY GT 08/10/18 09:00 09/09/18 08:59 08/15/18 08:48 Aspirin (ASA) 81 mg DAILY GT 08/10/18 09:00 09/09/18 08:59 08/15/18 08:48 Dextrose (Dextrose 50%) 25 ml Q30M PRN IV Hypoglycemia 08/09/18 11:15 09/08/18 11:14 Dextrose (Dextrose 50%) 50 ml Q30M PRN IV Hypoglycemia 08/09/18 11:15 09/08/18 11:14 Dextrose/Sodium Chloride 1,000 ml @ 75 mls/hr [id number] IV 08/09/18 11:24 09/08/18 11:23 08/15/18 04:00 Donepezil HCl (Aricept) 5 mg QHS GT 08/09/18 21:00 09/08/18 20:59 08/14/18 20:11 Enoxaparin Sodium (Lovenox) 40 mg DAILY SUBQ 08/10/18 09:00 09/09/18 08:59 08/15/18 08:50 Hydrochlorothiazide (Hydrodiuril) 12.5 mg DAILY GT 08/10/18 09:00 09/09/18 08:59 08/15/18 08:49 Lorazepam (Ativan) 1 mg Q6H PRN ORAL For Anxiety 08/09/18 21:45 08/16/18 21:44 Metoclopramide HCl (Reglan) 10 mg Q6H GT 08/11/18 00:00 09/10/18 00:00 08/15/18 12:03 Metoclopramide HCl (Reglan) 10 mg Q6H PRN IVP Nausea & Vomiting 08/10/18 14:00 09/09/18 13:59 Metoprolol Tartrate (Lopressor) 25 mg Q12HR GT 08/09/18 21:00 09/08/18 20:59 08/15/18 08:49 Ondansetron HCl (Zofran) 4 mg Q6H PRN IVP Nausea & Vomiting 08/09/18 11:15 09/08/18 11:14 Pravastatin Sodium (Pravachol) 40 mg DAILY GT 08/10/18 09:00 09/09/18 08:59 08/15/18 08:48 Allergies: Coded Allergies: No Known Allergies (Unverified , 03/16/16) ROS Limited/Unobtainable: Yes Subjective 83 YO F admitted with leaking G-tube. Cover for Int Med-Dr Arteaga. S/P endoscopy for G-tube change 08/14/18 Objective Last Vital Signs Date Time Temp Pulse Resp B/P (MAP) Pulse Ox O2 Delivery O2 Flow Rate FiO2 08/15/18 12:00 98.6 89 16 121/86 (98) 100 08/15/18 09:00 Room Air 08/14/18 12:49 2 Laboratory Tests Test 08/15/18 06:35 White Blood Count 5.7 K/UL (4.8-10.8) Red Blood Count 4.06 M/UL (4.20-5.40) L Hemoglobin 10.9 G/DL (12.0-16.0) L Hematocrit 32.9 % (37.0-47.0) L Mean Corpuscular Volume 81 FL (80-99) Mean Corpuscular Hemoglobin 27.0 PG (27.0-31.0) Mean Corpuscular Hemoglobin Concent 33.2 G/DL (32.0-36.0) Red Cell Distribution Width 12.6 % (11.6-14.8) Platelet Count 326 K/UL (150-450) Mean Platelet Volume 5.7 FL (6.5-10.1) L Neutrophils (%) (Auto) 60.3 % (45.0-75.0) Lymphocytes (%) (Auto) 20.8 % (20.0-45.0) Monocytes (%) (Auto) 15.8 % (1.0-10.0) H Eosinophils (%) (Auto) 2.7 % (0.0-3.0) Basophils (%) (Auto) 0.5 % (0.0-2.0) Sodium Level 138 MMOL/L (136-145) Potassium Level 3.6 MMOL/L (3.5-5.1) Chloride Level 104 MMOL/L (98-107) Carbon Dioxide Level 26 MMOL/L (21-32) Anion Gap 8 mmol/L (5-15) Blood Urea Nitrogen 15 mg/dL (7-18) Creatinine 0.9 MG/DL (0.55-1.30) Estimat Glomerular Filtration Rate mL/min (>60) Glucose Level 126 MG/DL (74-106) H Calcium Level 8.6 MG/DL (8.5-10.1) Phosphorus Level 2.9 MG/DL (2.5-4.9) Magnesium Level 1.7 MG/DL (1.8-2.4) L Total Bilirubin 0.4 MG/DL (0.2-1.0) Aspartate Amino Transf (AST/SGOT) 35 U/L (15-37) Alanine Aminotransferase (ALT/SGPT) 48 U/L (12-78) Alkaline Phosphatase 99 U/L (46-116) Total Protein 7.7 G/DL (6.4-8.2) Albumin 2.4 G/DL (3.4-5.0) L Globulin 5.3 g/dL Albumin/Globulin Ratio 0.5 (1.0-2.7) L Intake and Output 08/14/18 08/15/18 19:00 07:00 Intake Total 810 ml 1530 ml Output Total 500 ml Balance 310 ml 1530 ml Intake Free Water 130 ml 45 ml IV Total 450 ml 825 ml Tube Feeding 230 ml 660 ml Output Urine Total 500 ml # Voids 1 # Bowel Movements 2 1 Objective General Appearance: WD/WN, no apparent distress EENT: PERRL/EOMI, normal ENT inspection Neck: non-tender, normal alignment, supple, normal inspection Cardiovascular: normal peripheral pulses, normal rate, regular rhythm, no gallop/murmur, no JVD Respiratory/Chest: chest wall non-tender, lungs clear, normal breath sounds, no respiratory distress, no accessory muscle use Abdomen: normal bowel sounds, non tender, soft, no organomegaly, no mass Extremities: normal range of motion 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, no motor/sensory deficits Skin: normal pigmentation, warm/dry Assessment/Plan Problem List: (1) Alzheimer's dementia (2) Cerebral vascular disease (3) 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
[2018-08-15 16:00] VITALS: BP 118/86
--- NOTE | 2018-08-15 18:17 | General Progress Note ---
Assessment/Plan Assessment/Plan Assessment - Dysphagia / OBS - G tube site TF leak - S/p PEG change Recommendations - continue TF via new GT - Elevate HOB - monitor residuals Subjective Allergies: Coded Allergies: No Known Allergies (Unverified , 03/16/16) Subjective Above noted s/p EGD with GT change no new events overnight GT leak resolved, per RN Objective Last 24 Hour Vital Signs Date Time Temp Pulse Resp B/P (MAP) Pulse Ox O2 Delivery O2 Flow Rate FiO2 08/15/18 12:00 98.6 89 16 121/86 (98) 100 08/15/18 09:00 Room Air 08/15/18 08:49 90 110/86 08/15/18 08:00 98.3 90 16 110/86 (94) 100 08/15/18 04:00 97.4 72 16 118/60 (79) 100 08/15/18 00:00 99.2 79 16 144/83 (103) 100 08/14/18 20:51 Room Air 08/14/18 20:11 82 146/78 08/14/18 20:00 98.5 82 16 146/78 (100) 97 Intake and Output 08/14/18 08/15/18 18:59 06:59 Intake Total 710 ml 1630 ml Output Total 500 ml Balance 210 ml 1630 ml Intake Free Water 90 ml 85 ml IV Total 450 ml 825 ml Tube Feeding 170 ml 720 ml Output Urine Total 500 ml # Voids 1 # Bowel Movements 2 1 Laboratory Tests 08/15/18 06:35: White Blood Count 5.7, Red Blood Count 4.06L, Hemoglobin 10.9L, Hematocrit 32.9L , Mean Corpuscular Volume 81, Mean Corpuscular Hemoglobin 27.0, Mean Corpuscular Hemoglobin Concent 33.2, Red Cell Distribution Width 12.6, Platelet Count 326, Mean Platelet Volume 5.7L, Neutrophils (%) (Auto) 60.3, Lymphocytes ( %) (Auto) 20.8, Monocytes (%) (Auto) 15.8H, Eosinophils (%) (Auto) 2.7, Basophils (%) (Auto) 0.5, Sodium Level 138, Potassium Level 3.6, Chloride Level 104, Carbon Dioxide Level 26, Anion Gap 8, Blood Urea Nitrogen 15, Creatinine 0.9, Estimat Glomerular Filtration Rate , Glucose Level 126H, Calcium Level 8.6 , Phosphorus Level 2.9, Magnesium Level 1.7L, Total Bilirubin 0.4, Aspartate Amino Transf (AST/SGOT) 35, Alanine Aminotransferase (ALT/SGPT) 48, Alkaline Phosphatase 99, Total Protein 7.7, Albumin 2.4L, Globulin 5.3, Albumin/Globulin Ratio 0.5L Height (Feet): 5 Height (Inches): 6.00 Weight (Pounds): 150 Objective WDWN NCAT supple CTA RRR abd soft, (+) GT no edema Radha Middleton MD Aug 15, 2018 18:17
[2018-08-15 20:00] VITALS: BP 160/86
[2018-08-15] MEDS: Donepezil 5mg Tab GT SCH (20:20)
[2018-08-16] VITALS: BP 136/84
[2018-08-16] MEDS: D5NS 1,000 ML IV SCH (00:47)
[2018-08-16 04:00] VITALS: BP 171/85
[2018-08-16] MEDS: Metoclopramide 10mg/10ml Liq GT SCH ×2 (05:04→12:14)
[2018-08-16 06:21] LABS: ANION GAP 8 mmol/L (5-15); BLOOD UREA NITROGEN 12 mg/dL (7-18); CALCIUM 8.8 MG/DL (8.5-10.1); CARBON DIOXIDE 27 MMOL/L (21-32); CHLORIDE 104 MMOL/L (98-107); CREATININE 0.8 MG/DL (0.55-1.30); POTASSIUM 3.8 MMOL/L (3.5-5.1); SODIUM 139 MMOL/L (136-145)
[2018-08-16 06:47] LABS: BASOPHILS % (AUTO) 1.1 % (0.0-2.0); EOSINOPHILS % (AUTO) 1.9 % (0.0-3.0); HEMATOCRIT 34.9 % (37.0-47.0); HEMOGLOBIN 11.6 G/DL (12.0-16.0); MEAN CORPUSCULAR VOLUME 82 FL (80-99); MONOCYTES % (AUTO) 13.4 % (1.0-10.0); NEUTROPHILS % (AUTO) 67.6 % (45.0-75.0); PLATELET COUNT 193 K/UL (150-450); RED BLOOD COUNT 4.23 M/UL (4.20-5.40); RED CELL DISTRIBUTION WIDTH 12.8 % (11.6-14.8); WHITE BLOOD COUNT 6.4 K/UL (4.8-10.8)
[2018-08-16 08:00] VITALS: BP 126/79
[2018-08-16] MEDS: Aspirin Baby 81mg GT SCH (08:25)
[2018-08-16] MEDS: Metoprolol 25mg tab GT SCH (08:26)
[2018-08-16] MEDS: Ascorbic Acid 500mg tab GT SCH (08:26)
[2018-08-16] MEDS: Enoxaparin 40mg Inj SUBQ SCH (08:27)
[2018-08-16] MEDS ORDERED: D5NS 1000ml IV ONE (09:49)
[2018-08-16 12:00] VITALS: BP 153/91
--- NOTE | 2018-08-16 12:15 | Internal Med Progress Note ---
Subjective Date of Service: Aug 16, 2018 Physician Name Guanako Mensah Attending Physician Jonatan Arteaga MD Current Medications Medications (Trade) Dose Ordered Sig/Beatris Route PRN Reason Start Time Stop Time Status Last Admin Dose Admin Ascorbic Acid (Vitamin C) 500 mg DAILY GT 08/10/18 09:00 09/09/18 08:59 08/16/18 08:26 Aspirin (ASA) 81 mg DAILY GT 08/10/18 09:00 09/09/18 08:59 08/16/18 08:25 Carvedilol (Coreg) 3.125 mg EVERY 12 HOURS GT 08/16/18 09:00 09/15/18 08:59 08/16/18 08:25 Clonidine HCl (Catapres Tab) 0.1 mg Q6H PRN GT For High Blood Pressure 08/16/18 08:00 09/15/18 01:59 Dextrose (Dextrose 50%) 25 ml Q30M PRN IV Hypoglycemia 08/09/18 11:15 09/08/18 11:14 Dextrose (Dextrose 50%) 50 ml Q30M PRN IV Hypoglycemia 08/09/18 11:15 09/08/18 11:14 Dextrose/Sodium Chloride 1,000 ml @ 75 mls/hr [id number] IV 08/09/18 11:24 09/08/18 11:23 08/16/18 00:47 Donepezil HCl (Aricept) 5 mg QHS GT 08/09/18 21:00 09/08/18 20:59 08/15/18 20:20 Enoxaparin Sodium (Lovenox) 40 mg DAILY SUBQ 08/10/18 09:00 09/09/18 08:59 08/16/18 08:27 Hydrochlorothiazide (Hydrodiuril) 12.5 mg DAILY GT 08/10/18 09:00 09/09/18 08:59 08/16/18 08:26 Lorazepam (Ativan) 1 mg Q6H PRN ORAL For Anxiety 08/09/18 21:45 08/16/18 21:44 Metoclopramide HCl (Reglan) 10 mg Q6H GT 08/11/18 00:00 09/10/18 00:00 08/16/18 05:04 Metoclopramide HCl (Reglan) 10 mg Q6H PRN IVP Nausea & Vomiting 08/10/18 14:00 09/09/18 13:59 Metoprolol Tartrate (Lopressor) 25 mg Q12HR GT 08/09/18 21:00 09/08/18 20:59 08/16/18 08:26 Ondansetron HCl (Zofran) 4 mg Q6H PRN IVP Nausea & Vomiting 08/09/18 11:15 09/08/18 11:14 Pravastatin Sodium (Pravachol) 40 mg DAILY GT 08/10/18 09:00 09/09/18 08:59 08/16/18 08:26 Allergies: Coded Allergies: No Known Allergies (Unverified , 03/16/16) ROS Limited/Unobtainable: Yes Constitutional: Reports: no symptoms HEENT: Reports: no symptoms Cardiovascular: Reports: no symptoms Respiratory: Reports: no symptoms Gastrointestinal/Abdominal: Reports: no symptoms Neurologic/Psychiatric: Reports: no symptoms Subjective 83 YO F admitted with leaking G-tube. Cover for Int Med-Dr Arteaga. S/P endoscopy for G-tube change 08/14/18 Objective Last Vital Signs Date Time Temp Pulse Resp B/P (MAP) Pulse Ox O2 Delivery O2 Flow Rate FiO2 08/16/18 08:47 Room Air 08/16/18 08:26 76 126/79 08/16/18 08:00 98.1 16 100 08/14/18 12:49 2 Laboratory Tests Test 08/16/18 05:40 White Blood Count 6.4 K/UL (4.8-10.8) Red Blood Count 4.23 M/UL (4.20-5.40) Hemoglobin 11.6 G/DL (12.0-16.0) L Hematocrit 34.9 % (37.0-47.0) L Mean Corpuscular Volume 82 FL (80-99) Mean Corpuscular Hemoglobin 27.3 PG (27.0-31.0) Mean Corpuscular Hemoglobin Concent 33.2 G/DL (32.0-36.0) Red Cell Distribution Width 12.8 % (11.6-14.8) Platelet Count 193 K/UL (150-450) Mean Platelet Volume 6.3 FL (6.5-10.1) L Neutrophils (%) (Auto) 67.6 % (45.0-75.0) Lymphocytes (%) (Auto) 16.0 % (20.0-45.0) L Monocytes (%) (Auto) 13.4 % (1.0-10.0) H Eosinophils (%) (Auto) 1.9 % (0.0-3.0) Basophils (%) (Auto) 1.1 % (0.0-2.0) Sodium Level 139 MMOL/L (136-145) Potassium Level 3.8 MMOL/L (3.5-5.1) Chloride Level 104 MMOL/L (98-107) Carbon Dioxide Level 27 MMOL/L (21-32) Anion Gap 8 mmol/L (5-15) Blood Urea Nitrogen 12 mg/dL (7-18) Creatinine 0.8 MG/DL (0.55-1.30) Estimat Glomerular Filtration Rate mL/min (>60) Glucose Level 119 MG/DL (74-106) H Calcium Level 8.8 MG/DL (8.5-10.1) Intake and Output 08/15/18 08/16/18 19:00 07:00 Intake Total 1510 ml 1670 ml Balance 1510 ml 1670 ml Intake Free Water 250 ml 170 ml IV Total 600 ml 900 ml Tube Feeding 660 ml 600 ml # Voids 6 # Bowel Movements 3 1 Objective General Appearance: WD/WN, no apparent distress EENT: PERRL/EOMI, normal ENT inspection Neck: non-tender, normal alignment, supple, normal inspection Cardiovascular: normal peripheral pulses, normal rate, regular rhythm, no gallop/murmur, no JVD Respiratory/Chest: chest wall non-tender, lungs clear, normal breath sounds, no respiratory distress, no accessory muscle use Abdomen: normal bowel sounds, non tender, soft, no organomegaly, no mass Extremities: normal range of motion 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, no motor/sensory deficits Skin: normal pigmentation, warm/dry Assessment/Plan Problem List: (1) Alzheimer's dementia (2) Cerebral vascular disease (3) 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
--- NOTE | 2018-08-16 12:54 | Pulmonology Progress Note ---
Assessment/Plan Problems: (1) ARF (acute renal failure) (2) Malfunction of gastrostomy tube (3) At high risk for aspiration (4) Anemia (5) Alzheimer's dementia (6) HTN (hypertension) (7) Feeding by G-tube (8) Cerebral vascular disease Assessment/Plan improving check electrolytes monitor BP wound care consult symptomatic treatment social services counselor to find DOPA dc planning in progress Subjective ROS Limited/Unobtainable: No Constitutional: Reports: no symptoms HEENT: Repors: no symptoms Respiratory: Reports: no symptoms Allergies: Coded Allergies: No Known Allergies (Unverified , 03/16/16) Objective Last 24 Hour Vital Signs Date Time Temp Pulse Resp B/P (MAP) Pulse Ox O2 Delivery O2 Flow Rate FiO2 08/16/18 12:00 98.2 76 16 153/91 (111) 99 08/16/18 08:47 Room Air 08/16/18 08:26 76 126/79 08/16/18 08:25 76 126/79 08/16/18 08:00 98.1 76 16 126/79 (95) 100 08/16/18 05:04 171/85 08/16/18 04:00 98.7 78 16 171/85 (113) 99 08/16/18 00:00 96.9 71 16 136/84 (101) 99 08/15/18 22:51 74 168/94 08/15/18 21:00 Room Air 08/15/18 20:20 81 160/86 08/15/18 20:00 98.9 81 16 160/86 (110) 98 08/15/18 16:00 97.8 94 16 118/86 (97) 100 Intake and Output 08/15/18 08/16/18 19:00 07:00 Intake Total 1510 ml 1670 ml Balance 1510 ml 1670 ml Intake Free Water 250 ml 170 ml IV Total 600 ml 900 ml Tube Feeding 660 ml 600 ml # Voids 6 # Bowel Movements 3 1 General Appearance: WD/WN HEENT: normocephalic, atraumatic Respiratory/Chest: chest wall non-tender, lungs clear Cardiovascular: normal peripheral pulses, normal rate Abdomen: soft, non tender 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 Laboratory Tests 08/16/18 05:40: White Blood Count 6.4, Red Blood Count 4.23, Hemoglobin 11.6L, Hematocrit 34.9L , Mean Corpuscular Volume 82, Mean Corpuscular Hemoglobin 27.3, Mean Corpuscular Hemoglobin Concent 33.2, Red Cell Distribution Width 12.8, Platelet Count 193, Mean Platelet Volume 6.3L, Neutrophils (%) (Auto) 67.6, Lymphocytes ( %) (Auto) 16.0L, Monocytes (%) (Auto) 13.4H, Eosinophils (%) (Auto) 1.9, Basophils (%) (Auto) 1.1, Sodium Level 139, Potassium Level 3.8, Chloride Level 104, Carbon Dioxide Level 27, Anion Gap 8, Blood Urea Nitrogen 12, Creatinine 0.8, Estimat Glomerular Filtration Rate , Glucose Level 119H, Calcium Level 8.8 Current Medications Medications (Trade) Dose Ordered Sig/Beatris Route PRN Reason Start Time Stop Time Status Last Admin Dose Admin Ascorbic Acid (Vitamin C) 500 mg DAILY GT 08/10/18 09:00 09/09/18 08:59 08/16/18 08:26 Aspirin (ASA) 81 mg DAILY GT 08/10/18 09:00 09/09/18 08:59 08/16/18 08:25 Carvedilol (Coreg) 3.125 mg EVERY 12 HOURS GT 08/16/18 09:00 09/15/18 08:59 08/16/18 08:25 Clonidine HCl (Catapres Tab) 0.1 mg Q6H PRN GT For High Blood Pressure 08/16/18 08:00 09/15/18 01:59 Dextrose (Dextrose 50%) 25 ml Q30M PRN IV Hypoglycemia 08/09/18 11:15 09/08/18 11:14 Dextrose (Dextrose 50%) 50 ml Q30M PRN IV Hypoglycemia 08/09/18 11:15 09/08/18 11:14 Dextrose/Sodium Chloride 1,000 ml @ 75 mls/hr [id number] IV 08/09/18 11:24 09/08/18 11:23 08/16/18 00:47 Donepezil HCl (Aricept) 5 mg QHS GT 08/09/18 21:00 09/08/18 20:59 08/15/18 20:20 Enoxaparin Sodium (Lovenox) 40 mg DAILY SUBQ 08/10/18 09:00 09/09/18 08:59 08/16/18 08:27 Hydrochlorothiazide (Hydrodiuril) 12.5 mg DAILY GT 08/10/18 09:00 09/09/18 08:59 08/16/18 08:26 Lorazepam (Ativan) 1 mg Q6H PRN ORAL For Anxiety 08/09/18 21:45 08/16/18 21:44 Metoclopramide HCl (Reglan) 10 mg Q6H GT 08/11/18 00:00 09/10/18 00:00 08/16/18 12:14 Metoclopramide HCl (Reglan) 10 mg Q6H PRN IVP Nausea & Vomiting 08/10/18 14:00 09/09/18 13:59 Metoprolol Tartrate (Lopressor) 25 mg Q12HR GT 08/09/18 21:00 09/08/18 20:59 08/16/18 08:26 Ondansetron HCl (Zofran) 4 mg Q6H PRN IVP Nausea & Vomiting 08/09/18 11:15 09/08/18 11:14 Pravastatin Sodium (Pravachol) 40 mg DAILY GT 08/10/18 09:00 09/09/18 08:59 08/16/18 08:26 Janie Suero MD Aug 16, 2018 12:54
--- NOTE | 2018-08-16 20:05 | General Progress Note ---
Assessment/Plan Assessment/Plan Assessment - Dysphagia / OBS - G tube site TF leak - S/p PEG change Recommendations - continue TF via new GT - Elevate HOB - monitor residuals - d/c planning Subjective Allergies: Coded Allergies: No Known Allergies (Unverified , 03/16/16) Subjective Above noted s/p EGD with GT change no new events overnight GT leak resolved for discharge today Objective Last 24 Hour Vital Signs Date Time Temp Pulse Resp B/P (MAP) Pulse Ox O2 Delivery O2 Flow Rate FiO2 08/16/18 12:00 98.2 76 16 153/91 (111) 99 08/16/18 08:47 Room Air 08/16/18 08:26 76 126/79 08/16/18 08:25 76 126/79 08/16/18 08:00 98.1 76 16 126/79 (95) 100 08/16/18 05:04 171/85 08/16/18 04:00 98.7 78 16 171/85 (113) 99 08/16/18 00:00 96.9 71 16 136/84 (101) 99 08/15/18 22:51 74 168/94 08/15/18 21:00 Room Air 08/15/18 20:20 81 160/86 Intake and Output 08/15/18 08/16/18 18:59 06:59 Intake Total 1525 ml 1730 ml Balance 1525 ml 1730 ml Intake Free Water 250 ml 170 ml IV Total 675 ml 900 ml Tube Feeding 600 ml 660 ml # Voids 6 # Bowel Movements 3 1 Laboratory Tests 08/16/18 05:40: White Blood Count 6.4, Red Blood Count 4.23, Hemoglobin 11.6L, Hematocrit 34.9L , Mean Corpuscular Volume 82, Mean Corpuscular Hemoglobin 27.3, Mean Corpuscular Hemoglobin Concent 33.2, Red Cell Distribution Width 12.8, Platelet Count 193, Mean Platelet Volume 6.3L, Neutrophils (%) (Auto) 67.6, Lymphocytes ( %) (Auto) 16.0L, Monocytes (%) (Auto) 13.4H, Eosinophils (%) (Auto) 1.9, Basophils (%) (Auto) 1.1, Sodium Level 139, Potassium Level 3.8, Chloride Level 104, Carbon Dioxide Level 27, Anion Gap 8, Blood Urea Nitrogen 12, Creatinine 0.8, Estimat Glomerular Filtration Rate , Glucose Level 119H, Calcium Level 8.8 Height (Feet): 5 Height (Inches): 6.00 Weight (Pounds): 150 Objective WDWN NCAT supple CTA RRR abd soft, (+) GT no edema Radha Middleton MD Aug 16, 2018 20:05
--- NOTE | 2018-08-17 13:11 | Discharge Summary ---
Discharge Summary Discharge Summary _ DATE OF ADMISSION: 08/09/2018 DATE OF DISCHARGE: 08/16/2018 REASON FOR ADMISSION: 83 years old female with past medical history of pulmonary embolism, DVT, dementia, history of CVA, bedbound status, brought to emergency room for evaluation and management due to malfunctioning G-tube/leaking G-tube. Upon evaluation patient had low-grade fever and was tachycardic with heart rate 110 ,temperature 99.9. Emergency room physician attempted to replace G-tube with the largest size. KUB conformed satisfactory placement of G tube. Possible mild rectal fecal impaction However G-tube continued to leak. Chemistry showed BUN 30, creatinine 1.1. Glucose 130. No leukocytosis, hemoglobin 10.8, hematocrit 33.1. Patient required assessment by phys asst for further management and was admitted with diagnosis of malfunctioning G-tube CONSULTANTS: pulmonary Dr. Suero GI specialist Dr. Middleton/ psychiatrist [facility] COURSE: Patient admitted to medical surgical floor and started on IV hydration. GI seen and evaluated patient. After obtaining consent from patient's DPOA, patient undergone replacement of G tube Head of the bed was elevated at all times. Abdominal binder applied and was on. G-tube site care provided. Later patient started on G-tube feeding. Patient at high aspiration risk. Strict aspiration /reflux precaution were maintained . Patient was able to tolerate feeding, no further leaking. Bowel regimen instituted. GI prophylaxis provided. Supplemental oxygen provided as needed to keep pulse oximetry above 92%. Pulmonary toilet was on standby as needed. Aspirin was continued. Blood pressure was managed with beta benji and hydrochlorothiazide. Hemoglobin and hematocrit were closely monitored, remained stable. Prior to discharge hemoglobin 11.6 ,hematocrit 34.9 . Renal parameters and electrolytes were closely monitored , nephrotoxins were avoided. Electrolytes were replaced as needed. Prior to discharge BUN 22 creatinine 1.0. Acute kidney injury was likely provoked by dehydration, resolved. Supportive care provided. Pain management was addressed as needed. Patient with DNR/DNI status. Patient stabilized and was ready for discharge to [facility] for continuation of care. FINAL DIAGNOSES: Malfunctioning G-tube/leaking G tube High aspiration risk Status post G-tube replacement Alzheimer dementia Cerebrovascular disease Hypertension Acute kidney injury, resolved Anemia Anxiety disorder DISCHARGE MEDICATIONS: See Medication Reconciliation list. DISCHARGE INSTRUCTIONS: [facility] was [facility] to the [facility] facility. Follow up with medical doctor at the facility. Erika Ferrara NP Aug 17, 2018 13:11
== END 2018-08-16 09:50 | disposition left against medical advice (07) | DRG 252 ==
LOC: EDBD 08:34 → EMR 09:00 → 4E 10:22 → EDBEDREQ 10:50 → 4E 08-12 16:14
DX: K94.23 Gastrostomy malfunction (principal); N17.9 Acute kidney failure, unspecified; E86.0 Dehydration; G30.9 Alzheimer's disease, unspecified; K31.84 Gastroparesis; R13.10 Dysphagia, unspecified; F02.80 Dementia in other diseases classified elsewhere, unspecified severity, without behavioral disturbance, psychotic disturbance, mood disturbance, and anxiety; Z86.718 Personal history of other venous thrombosis and embolism; Z86.711 Personal history of pulmonary embolism; Z74.01 Bed confinement status; Z86.73 Personal history of transient ischemic attack (TIA), and cerebral infarction without residual deficits; K21.9 Gastro-esophageal reflux disease without esophagitis; I10 Essential (primary) hypertension; I67.9 Cerebrovascular disease, unspecified; F41.9 Anxiety disorder, unspecified; Z66 Do not resuscitate
CPT/HCPCS: 36415; 74018; 80048; 80053; 83735; 84100; 85025; 85610; 85730; 87081; 94003; 94150; 96360; 99285; J8499